=== PATIENT | female | born 1965 | race Caucasian/White ===

== ENCOUNTER 2019-06-22 13:31 | Emergency (ER) | payer MEDICARE, OTHER ==
[~2019-06-22] VITALS: Ht 165.1 cm; Wt 95.2 kg
[~2019-06-22 13:31] MED LIST: ALPR1 PO; ASPI81EC PO; ATENOLOL; BUSPIRONE; CHLO100 PO; CHOL10002 PO; CLONIDINE; EFFIENT; GEODON; JANUVIA; LEVSOD175 PO; LISI5 PO; METF500C PO; MORP15ER PO; OXYACE5T PO; RANI150 PO; RANO500T PO; SIMVASTATIN; VENLAFAXINE; ZAFI20 PO
== END 2019-06-22 15:31 | disposition home or self-care (01) ==
LOC: ER 13:31
DX: S70.02XA Contusion of left hip, initial encounter (principal); W18.2XXA Fall in (into) shower or empty bathtub, initial encounter; Z88.5 Allergy status to narcotic agent; Z91.048 Other nonmedicinal substance allergy status; Z79.899 Other long term (current) drug therapy; Z79.82 Long term (current) use of aspirin; Z79.84 Long term (current) use of oral hypoglycemic drugs; Z79.891 Long term (current) use of opiate analgesic; I25.2 Old myocardial infarction
CPT/HCPCS: 72100; 73502; 99283-25

== ENCOUNTER → 2019-07-21 | Outpatient (CLI) | payer MEDICARE, OTHER ==
[~2019-07-21] MED LIST changes: +ACET325 PO; +ALBU2.5V5 INH; +ALBU3IS INH; +ASPI81CH PO; +ATOR40TA PO; +Anti-Diarrheal2 MG PO; +BACL10 PO; +BISA10S PR; +CALC.25 PO; +COMBIVENT RESPIM4 GM INH; +DIVA500EC PO; +DULERA 200 MCG/13 GM INH; +FOLI1 PO; +FURO20 PO; +GABA100 PO; +HALO2 PO; +HALO5 PO; +Isosorbide Mono30 MG PO; +LACO50TA2 PO; +LEVSOD112 PO; +Lisinopril2.5 MG PO; +MIRT15 PO; +Milk Of Ma400 MG/5 M PO; +NITR.4SL SL; +NOVOLOG FL100 UNIT/1 SC; +NYSTRITC TOP; +POTA10T PO; +PRAZ1 PO; +PRED20 PO; +Percocet 5-3251 EACH PO; +ROBITUSSIN COU237 ML PO; +Refresh Plus1 EACH BOTHEYES; +TICA90TA PO; +TRIPLE ANTIBIOT28 GM TOP; +VENL150ER PO; +VENL75ER PO; +Vitamin D2000 UNIT PO
[2019-07-21 19:42] LABS: Source, Urine Clean Catch
[2019-07-21 20:16] LABS: Bilirubin, Urine Neg (Neg); Blood, Urine Neg (Neg); Glucose Qualitative, Urine Neg (Neg); Ketones, Urine Neg (Neg); Leukocyte Esterase, Urine 1+ (Neg); Nitrite, Urine Neg (Neg); Protein, Urine 2+ (Neg); Urobilinogen, Urine NORM (Normal)
[2019-07-21 20:23] LABS: Appearance, Urine Clear (Clear); Color, Urine Yellow (P-Yellow)
[2019-07-21 20:24] LABS: Bacteria Mod /hpf; Red Blood Cells, Urine 0-2 /hpf (0-2); Squamous Epithelial Cells Few /hpf (Few)
== END | disposition home or self-care (01) ==
LOC: LAB SHORT 11:35 → LAB 11:35
PROVIDERS: Nurse Practitioner Family
DX: N39.0 Urinary tract infection, site not specified (principal)
CPT/HCPCS: 81001; 87086

== ENCOUNTER → 2019-08-07 | Outpatient (CLI) | payer MEDICARE, OTHER ==
[2019-08-07 12:46] LABS: Bilirubin, Urine Neg (Neg); Blood, Urine Neg (Neg); Glucose Qualitative, Urine Neg (Neg); Ketones, Urine Neg (Neg); Leukocyte Esterase, Urine Neg (Neg); Nitrite, Urine Neg (Neg); Protein, Urine 2+ (Neg); Urobilinogen, Urine NORM (Normal)
[2019-08-07 13:06] LABS: Appearance, Urine Clear (Clear); Bacteria Not Seen /hpf; Color, Urine Yellow (P-Yellow); Red Blood Cells, Urine Not Seen /hpf (0-2); Squamous Epithelial Cells Not Seen /hpf (Few); White Blood Cells, Urine Not Seen /hpf (0-5); Yeast/Fungi Urine Not Seen /hpf
== END | disposition home or self-care (01) ==
LOC: LAB SHORT 12:35 → LAB 12:35
DX: F01.50 Vascular dementia, unspecified severity, without behavioral disturbance, psychotic disturbance, mood disturbance, and anxiety (principal)
CPT/HCPCS: 81001

== ENCOUNTER 2019-08-25 21:45 | Inpatient (IN) | payer MEDICARE, OTHER ==
[~2019-08-25] VITALS: Ht 157.5 cm; Wt 103.8 kg
[~2019-08-25 21:45] MED LIST changes: -ACET325 PO; -ALBU2.5V5 INH; -ALBU3IS INH; -ASPI81CH PO; -ATOR40TA PO; -Anti-Diarrheal2 MG PO; -BACL10 PO; -BISA10S PR; -CALC.25 PO; -COMBIVENT RESPIM4 GM INH; -DIVA500EC PO; -DULERA 200 MCG/13 GM INH; -FOLI1 PO; -FURO20 PO; -GABA100 PO; -HALO2 PO; -HALO5 PO; -Isosorbide Mono30 MG PO; -LACO50TA2 PO; -LEVSOD112 PO; -Lisinopril2.5 MG PO; -MIRT15 PO; -Milk Of Ma400 MG/5 M PO; -NITR.4SL SL; -NOVOLOG FL100 UNIT/1 SC; -NYSTRITC TOP; -POTA10T PO; -PRAZ1 PO; -PRED20 PO; -Percocet 5-3251 EACH PO; -ROBITUSSIN COU237 ML PO; -Refresh Plus1 EACH BOTHEYES; -TICA90TA PO; -TRIPLE ANTIBIOT28 GM TOP; -VENL150ER PO; -VENL75ER PO; -Vitamin D2000 UNIT PO
[2019-08-25] MEDS ORDERED: ATOR40TA PO (22:37)
[2019-08-25] MEDS ORDERED: ASPI81CH PO (22:37)
[2019-08-25] MEDS ORDERED: TICA90TA PO (22:38)
[2019-08-25] MEDS ORDERED: CALC.25 PO (22:39)
[2019-08-25] MEDS ORDERED: FOLI1 PO (22:40)
[2019-08-25] MEDS ORDERED: DIVA500EC PO (22:40)
[2019-08-25] MEDS ORDERED: FURO20 PO (22:40)
[2019-08-25] MEDS ORDERED: GABA100 PO (22:41)
[2019-08-25] MEDS ORDERED: Isosorbide Mono30 MG PO (22:42)
[2019-08-25] MEDS ORDERED: HALO5 PO (22:42)
[2019-08-25] MEDS ORDERED: Lisinopril2.5 MG PO (22:43)
[2019-08-25] MEDS ORDERED: LEVSOD112 PO (22:43)
[2019-08-25] MEDS ORDERED: MIRT15 PO (22:44)
[2019-08-25] MEDS ORDERED: NOVOLOG FL100 UNIT/1 SC (22:44)
[2019-08-25] MEDS ORDERED: POTA10T PO (22:44)
[2019-08-25] MEDS ORDERED: PRAZ1 PO (22:45)
[2019-08-25] MEDS ORDERED: RANO500T PO (22:45)
[2019-08-25] MEDS ORDERED: VENL75ER PO (22:46)
[2019-08-25] MEDS ORDERED: VENL150ER PO (22:46)
[2019-08-25] MEDS ORDERED: Vitamin D2000 UNIT PO (22:47)
[2019-08-25] MEDS ORDERED: LACO50TA2 PO (22:47)
[2019-08-25] MEDS ORDERED: ACET325 PO (22:47)
[2019-08-25] MEDS ORDERED: ALBU2.5V5 INH (22:48)
[2019-08-25] MEDS ORDERED: BACL10 PO (22:49)
[2019-08-25] MEDS ORDERED: BISA10S PR (22:50)
[2019-08-25] MEDS ORDERED: Anti-Diarrheal2 MG PO (22:57)
[2019-08-25] MEDS ORDERED: HALO2 PO (22:57)
[2019-08-25] MEDS ORDERED: NITR.4SL SL (22:58)
[2019-08-25] MEDS ORDERED: Milk Of Ma400 MG/5 M PO (22:58)
[2019-08-25] MEDS ORDERED: NYSTRITC TOP (23:01)
[2019-08-25] MEDS ORDERED: Percocet 5-3251 EACH PO (23:02)
[2019-08-25] MEDS ORDERED: TRIPLE ANTIBIOT28 GM TOP (23:03)
[2019-08-25 23:08] LABS: BASOPHILS ABSOLUTE AUTO 0.03 K/mm3 (0.00-0.23); BASOPHILS PERCENT AUTO 0 % (0-2); EOSINOPHILS ABSOLUTE AUTO 0.23 K/mm3 (0.00-0.68); EOSINOPHILS PERCENT AUTO 3 % (0-6); Hematocrit 41.3 % (33.0-51.0); Hemoglobin 12.9 g/dL (11.5-16.0); IMMATURE GRAN ABSOLUTE AUTO 0.04 K/mm3 (0.00-0.10); IMMATURE GRAN PERCENT AUTO 1 % (0-1); LYMPHOCYTES ABSOLUTE AUTO 2.11 K/mm3 (0.84-5.20); LYMPHOCYTES PERCENT AUTO 25 % (21-46); MONOCYTES ABSOLUTE AUTO 0.83 K/mm3 (0.16-1.47); MONOCYTES PERCENT AUTO 10 % (4-13); Mean Corpuscular HGB 33.4 pg (26.0-34.0); Mean Corpuscular HGB Conc 31.2 g/dL (31.5-36.5); Mean Corpuscular Volume 107 fL (80-100); Mean Platelet Volume 10.1 fL (9.1-12.4); NEUTROPHILS ABSOLUTE AUTO 5.19 K/mm3 (1.96-9.15); NEUTROPHILS PERCENT AUTO 62 % (41-73); Platelet Count 166 K/mm3 (150-400); RDW Coefficient Variation 13.2 % (11.7-14.2); RDW Standard Deviation 52.9 fL (35.1-46.3); Red Blood Cell Count 3.86 M/mm3 (3.80-5.20); White Blood Cell Count 8.43 K/mm3 (4.00-11.30)
[2019-08-25 23:29] LABS: Albumin, Blood 3.3 g/dL (3.4-5.0); Albumin/Globulin Ratio 0.9 (0.8-1.8); Bilirubin, Total 0.3 mg/dL (0.1-1.0); Bun/Creatinine Ratio 31.3 (12.0-20.0); Calcium, Blood 8.9 mg/dL (8.5-10.1); Creatinine, Blood 2.11 mg/dL (0.40-1.00); Globulin, Blood 3.8 g/dL (2.2-4.0); Potassium, Blood 4.9 mmol/L (3.5-5.5); Total Protein, Blood 7.1 g/dL (6.4-8.2)
[2019-08-26 00:31] LABS: Base Excess Venous -0.6 mmol/L; Bicarbonate Venous 23.3 mmol/L (24.0-30.0); PCO2 Venous 48.7 mmHg (38-42); PO2 Venous 55.6 mmHg (38-42); pH Blood Venous 7.33 (7.34-7.37)
[2019-08-26 09:34] LABS: Base Excess Venous -2.8 mmol/L; PCO2 Venous 42.4 mmHg (38-42); PO2 Venous 161 mmHg (38-42); pH Blood Venous 7.34 (7.34-7.37)
[2019-08-26 12:01] LABS: Hematocrit 37.3 % (33.0-51.0); Hemoglobin 11.6 g/dL (11.5-16.0); Mean Corpuscular HGB Conc 31.1 g/dL (31.5-36.5); Mean Corpuscular Volume 106 fL (80-100); Mean Platelet Volume 9.8 fL (9.1-12.4); Platelet Count 154 K/mm3 (150-400); RDW Coefficient Variation 13.3 % (11.7-14.2); RDW Standard Deviation 52.7 fL (35.1-46.3); Red Blood Cell Count 3.51 M/mm3 (3.80-5.20); White Blood Cell Count 5.97 K/mm3 (4.00-11.30)
[2019-08-26 12:21] LABS: Albumin, Blood 2.9 g/dL (3.4-5.0); Albumin/Globulin Ratio 0.8 (0.8-1.8); Bilirubin, Total 0.2 mg/dL (0.1-1.0); Bun/Creatinine Ratio 31.9 (12.0-20.0); Calcium, Blood 8.8 mg/dL (8.5-10.1); Creatinine, Blood 1.85 mg/dL (0.40-1.00); Globulin, Blood 3.6 g/dL (2.2-4.0); Potassium, Blood 4.9 mmol/L (3.5-5.5); Total Protein, Blood 6.5 g/dL (6.4-8.2)
--- NOTE | 2019-08-26 16:39 | NUR ---
ADMIT NOTE/SHIFT SUMMARY RECEIVED REPORT FORM GUEVARA AARON IN ED. PT TO ROOM VIA BED AT 1600. PT ORIENTED TO ROOM AND CALL LIGHT. PT EDUCATED ON FALL RISK, BEDALARM AND CALL LIGHT. PT PLACED ON BIPAP IN ED, 10/23 AT 40% FIO2. PT ALERT AND ORIENTED TO PERSON, STATES SHE DOSE NOT KNOW WHERE SHE IS, HOW SHE GOT HERE OR THE DATE. STATES SHE MIGHT BE AT THE HOSPITAL. PT ASKING TO SPEAK A [facility]. PT DENIES PAIN AND NAUSEA. PT SOB WITH EXERTION, ON BIPAP 10/23 AT 40%FIO2 WITH A BACK UP RATE OF 14 SPO2 90-96%, BREATHING LABORED, LS EXP WHEEZE AND COARSE T/O. PT ANXIOUS AND CONFUSED, ASKING US TO STOP ASKING HER QUESTIONS AND TO CALL [facility], CALL NUMBER WE HAVE ON FILE AND IT WAS A WRONG NUMBER. SINCE PT STATES SHE LIVES WITH DOMINICK CALLED THE NUMBER ON FILE. SPOKE WITH LYDIA AT [facility], PT LIVES IN [address]. 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 PT BASELINE IS A&Ox1, CONFUSED. LYDIA REPORTS PT IS 1PEUNICE HINES AT BASELINE. WILL CONTINUE TO MONITOR.
[2019-08-26 16:48] LABS: U Amphetamine Screen Not Detected; U Barbituate Screen Not Detected; U Benzodiazapine Screen Not Detected; U Buprenorphine Screen Not Detected; U Cannabinoids Screen Not Detected; U Cocaine Screen Not Detected; U Methadone Screen Not Detected; U Methamphetamine Screen Not Detected; U Opiates Screen Not Detected; U Oxycodone Screen Not Detected; U Phencyclidine Screen Not Detected; U Propoxyphene Screen Not Detected
[2019-08-26 18:05] LABS: Adenovirus Not Detected (NOT DETECT); Bordetella pertussis Not Detected (NOT DETECT); Chlamydophila pneumoniae Not Detected (NOT DETECT); Coronavirus 229E Not Detected (NOT DETECT); Coronavirus HKU1 Not Detected (NOT DETECT); Coronavirus NL63 Not Detected (NOT DETECT); Coronavirus OC43 Not Detected (NOT DETECT); Human Metapneumovirus Not Detected (NOT DETECT); Human Rhinovirus/Enterovirus Detected (NOT DETECT); Influenza A Not Detected (NOT DETECT); Influenza A/2009-H1 Not Detected (NOT DETECT); Influenza A/H1 Not Detected (NOT DETECT); Influenza A/H3 Not Detected (NOT DETECT); Influenza B Not Detected (NOT DETECT); Mycoplasma pneumoniae Not Detected (NOT DETECT); Parainfluenza Virus 1 Not Detected (NOT DETECT); Parainfluenza Virus 2 Not Detected (NOT DETECT); Parainfluenza Virus 3 Not Detected (NOT DETECT); Parainfluenza Virus 4 Not Detected (NOT DETECT); Respiratory Syncytial Virus Not Detected (NOT DETECT)
--- NOTE | 2019-08-27 06:22 | NUR ---
SHIFT SUMMARY PT SLEEPING IN ROOM COMFORTABLY AT THIS TIME. NO ACUTE CHANGES IN STATSU T/O NIGHT. PT REMAINED CONFUSED T/O NIGHT AND REQUIRED FREQUENT REORIENTING. PT WORE BIPAP T/O NIGHT AND SLEPT WELL ONCE BIPAP WAS ONE. PT GOT UP AND SET BED ALARM OFF ONCE DURING NIGHT TO USE RESTROOM. PT WAS AGGITATED AND CONFUSED AND REQUIRED SIGNIFICANT REORIENTATION. THIS RN WAS ABLE TO GET PT BACK TO BED AND CAKLMED DOWN ENOUGH TO GO BACK TO SLEEP. RESP EVEN UNLABORED ON BIPAP W/ SATS >92%. DENIED PAIN OR OTHER NEEDS. CALL LIGHT AND BED ALARM ON FOR SAFETY.
--- NOTE | 2019-08-27 07:52 | NUR ---
Ambulatory to the bathroom with standby assistance to void. Spo2 88% on return to bed after the activity, while wearing oxygen delivery 5 l/min on nasal cannula. NO observed dyspnea. Occasional dry cough noted. spo2 to 93% after feww minutes rest in the bed.
--- NOTE | 2019-08-27 09:16 | NUR ---
NURSING PCU DAYSHIFT: Assumed care of pt at approx 0700. Sleeping though arouses to verbal stimuli, oriented to self only, cooperative w/care though impulsive. Denies any pain/discomfort at rest. Skin is fragile, scattered scabs on ext's, no breakdown noted. General weakness, ambulates and transfers w/one staff assist. Tele in place, NSR w/BBB, no c/o CP/pressure, BP stable, no noted edema. L/S with I/E wheezes t/o, c/o dyspnea w/exertion, O2 sat low 90's on 2L NC, desaturation noted w/sleep, continuous bedside O2 monitoring. Abd obese, SNT, BT+, voiding w/o difficulty per pt. PIV x1, s/l. No s/s of acute distress at this time. Call light in reach though bed alarm is set for safety purposes. Pt denies any current needs or questions regarding plan of care. Awaiting rounding from PMD, cont to monitor for any changes.
--- NOTE | 2019-08-27 17:32 | NUR ---
NURSING PCU DAYSHIFT SUMMARY: No significant changes noted t/o the shift. Pt remains pleasantly forgetful though cooperative w/care. Tolerated bipap for short period of time though wore NC at 4.5L t/o majority of shift w/O2 sat low 90's. Seen by PMD, changed to medical status w/o tele, awaiting bed assignment. No s/s of acute distress at this time, call light in reach, bed alarm set for safety purposes. Cont to monitor until rpt is given to NOC RN.
--- NOTE | 2019-08-28 06:00 | NUR ---
SHIFT SUMMARY PT SLEEPING IN ROOM COMFORTABLY AT THIS TIME. NO ACUTE CHANGES IN STATUS T/O NIGHT. PT SLEPT WELL T/O NIGHT. WORE CPAP T/O NIGHT. RESP EVEN UNLABORED ON CPAP W/ SATS >95%. PT DENIES ANY PAIN DURING NIGHT, DENIED CP OR SOB. PT REMAINED CONFUSED AND REQUIRED REORIENTING MULTIPLE TIMES DURING START OF SHIFT UNTIL PT FELL ASLEEP. BED ALARM ON FOR SAFETY. CALL LIGHT IN REACH.
--- NOTE | 2019-08-28 10:00 | NUR ---
PT PLEASANT COOP CONFUSED ALERT TO SELF, FAM. NOT SURE OF PLACE, DATE, CURRENT DATE. NOT SURE WHY HERE. SOME ANX. WITHDRAWN. CONFUSED. H/R REG, NO MURMER NOTED. NO TELE. LUNGS CLEAR UPPER DIM BASES. ON 4.5L O2. BIPAP AT NITE. RESP EASY, UNLABORED. BT X4 LAST BM NOT KNOWN BY PT. STATES MAYBE 2 DAY. VOIDS 1 ASSST TO BATHROOM. UNSTEADY. BED IN LOW POSITION,C ALL LITE IN REACH, BED ALARM ON FOR SAFETY,.
--- NOTE | 2019-08-28 13:15 | NUR ---
TALKED TO RT WILL BRING MSERIES CPAP TO ROOM 358. NEED CONT BIOX. REPOTT CALLED TO JANET. WATERMAN. PT TRANPORTED AT 1313
--- NOTE | 2019-08-28 16:10 | NUR ---
TRANSFER FROM 358 TO ROOM VIA W/C ACCOMPANIED BY GUEVARA BROWNE AND FRIEND. ORIENTED TO ROOM AND CALL LIGHT IN HAND. BED LOW AND IN LOCKED POSITION. BED ALARM APPLIED. FREQUENT ROUNDING EXPLAINED TO FRIEND AND PATIENT.
--- NOTE | 2019-08-28 16:38 | NUR ---
1330 ASSUMED CARE OF PT. PCU TX TO RM 358. RECEIVED REPORT FROM DARNELL WATERMAN. PT ADMITTED FOR COPD EXAC. HX OF VASCULAR DEMENTIA, DM, CAD, CKD, AND BIPOLAR. PT FROM [facility]. POSSIBLE PLACEMENT IF UNABLE TO RETURN TO [facility]. PT NOW ON O2 AT THIS TIME, BUT ALSO A SMOKER. PT UNABLE TO RETURN ON O2 IF SHE CONTINUES TO SMOKE. PER REPORT, PT WEARS AN EYE PATCH TO R EYE R/T DOUBLE VISION. PT FORGETFUL, NEEDING FREQUENT REMINDERS. CBG'S AC/HS. PG TO SHARA; SL. WEARS A BIPAP AT NIGHT. RT HERE TO TO SET UP WHEN TX'D. BED ALARM PLACED ON PT WITH CALL LT INSTRUCTIONS. PT OOB, SETTING CALL BED ALARM OFF A COUPLE OF TIMES. PT FORGETFUL, AND WOULD NOT REMEMBER TO USE CALL LT. PT TX'D TO [facility] FOR SAFETY. PT SEEMED VERY PLEASANT, BUT VERY FORGETFUL, EVEN WITH REPEATED FREQUENT REMINDERS. REPORT GIVEN TO AD WATERMAN.
--- NOTE | 2019-08-28 16:54 | NUR ---
PT WALKED THROUGH DOORS IN SCU STATES "I NEED TO GET OUT OF HERE" "YOU WON'T LET ME GO"; FRIEND IN ROOM STATES "SHE IS JUST GETTING AGITATED AGAIN" REPORTED TO DR. VILLANUEVA.
--- NOTE | 2019-08-28 17:03 | NUR ---
SHIFT SUMMARY TRANSFER FROM [facility] THIS EVENING. BIPOLAR. SBA. ATTEMPTED TO LEAVE UNIT STATES "I'M JUST LEAVING, DON'T TOUCH ME!" REDIRECTED AND DEESCALATED. DR. VILLANUEVA INFORMED. LONG TIME FRIEND IN ROOM AND ATTENTIVE. DENIES PAIN. 4.5L 02 PER NC. FORGETFUL. BIPAP W/SLEEP. CBG'S AC HS. COPD, CAD, CKD, UTERINE PROLAPSE. VASCULAR DEMENTIA.
--- NOTE | 2019-08-29 03:52 | NUR ---
SHIFT SUMMARY PT HAD NO COMPLAINTS NOTED. PT HAD NO SOB NOTED. PT WAS UP LATE TALKING ON PHONE AND WATCHING TV. PT IS IMPULSIVE AND AT TIMES UNSTEADY ON HER FEET. BED ALARM IS ON. PT IS FORGETFUL BUT REIDIRECTABLE. PT FOLLOWS DIRECTIONS BUT FORGETS DIRECTION SOON AFTER. PT IS PLEASENT AND AGREEABLE JUST FORGETS OWN LIMITATIONS. PT IS CURRENTLY SLEEPING AND BREATHING EASY. CALL LIGHT IN REACH AND BED ALARM ON.
--- NOTE | 2019-08-29 04:18 | NUR ---
PT WOKE UP RECENTLY VERY CONFUSED AND ATTEMPTING TO GET OUT OF BED. PT WANTED TO GO OUTSIDE TO SMOKE. PT DID NOT KNOW SHE WAS AT HOSPITAL. PT IS AGITATED. PT CBG WAS ASSESSED AND IT WAS 259 MG/DL. PT REDIRECTED TO BED AFTER USING RESTROOM.
--- NOTE | 2019-08-29 10:23 | NUR ---
Physician Notified Called [facility] and spoke to Nneka, states pt is not on O2 at home so her baseline would be no O2. Notified Dr. Jean, discharge is pending home O2 eval.
[2019-08-29] MEDS ORDERED: ALBU3IS INH (11:39)
[2019-08-29] MEDS ORDERED: ROBITUSSIN COU237 ML PO (11:46)
--- NOTE | 2019-08-29 16:54 | NUR ---
Shift Summary A/O to self. 1PSBA in room. Home O2 Evaluation completed, pt to wear 2L O2 @ rest (see RT notes for further details). Pt was supposed to d/c back to [facility] today; however, facility called back after this RN called to give report and stated they cannot take pt back d/t no presence of RN at their facility to receive and assess pt on the weekends. Plan is to discharge on Saturday (08/31/2019). Dr. Jean aware. Discharge paperwork already completed, meds faxed to [facility], paperwork to establish home O2 faxed to [facility] (delivery is currently on hold until pt discharges). Pt became agitated after being told she couldn't go home yet. Pt states "I need money so I can get some cigarettes. I need to smoke." Educated pt on the need to stay in hospital and her O2 requirements. Medicated for agitation x 1 per EMAR. Patient more calm now and resting in bed. Bandage on R knee changed. L/S: inspiratory wheezes. No other acute changes this shift.
--- NOTE | 2019-08-30 03:43 | NUR ---
54 year old Female with copd and positive for RHINO/ entero virus on admission and has been compliant with cpap or oxygen. PT cooperative with medications, no complaints of acute pain. PT from [facility] and she has DC order but unable to return to facility until Saturday. PT wears eyepatch rt eye while awake. On IV steroid for COPD. Home o2 tanmay says PT needs oxygen at rest 2 l nc. Incontinet of urine several times wears pullups. Hx of falls with several scabber abraisions rt knee. ON haldol 5 mg with no prn use needed this shift. High risk for falls sets bed alarm off several times. Reoriented several times encouraged smoking cessation.
--- NOTE | 2019-08-30 16:55 | NUR ---
Shift Summary A/O to self and family. Continues to not know where she is or lives. Forgetful. Pt has been up in room c Fww independently. Ambulated in hallway c SBA and Fww, tolerated well. Monitors are on for pt safety. Pleasant and cooperative, have not had to medicate for agitation. 2LPM O2 @ rest. No other acute changes.
--- NOTE | 2019-08-31 03:54 | NUR ---
SUMMARY: PT A/O TO SELF AND FAMILY BUT IS FORGETFULL TO PLACE, DATE/TIME AND EVENT. CAMERA MONITORING FOR FALL RISK AND IMPULSIVITY. SHE'S STABLE ON HER FEET W/FWW BUT HAS HX OF FALLS AND ISN'T ALWAYS SPACIALLY AWARE OF LINES OR OBSTACLES IN ROOM. VOLUNTEER FIREFIGHTER AMBULATED PT IN HALLS. SHE'S PLEASANT/COOPERATIVE AND CONTINENT TO TOILET FOR VOIDS. MEPILEX TO KNEE REMAINS C/D/I AND SCATTERED BRUISES OBSERVED. PT TOLERATED CPAP W/2L O2 BLEED IN AND CONT BIOX INTACT. SHARA POWERGLIDE REMAINS SL. NO ACUTE CHANGE, VSS/AFEBRILE AND PT DENIED COMPLAINTS. SNACKS WERE PROVIDED PRN PER REQUEST. PT WILL LIKELY D/C BACK TO [facility] TODAY W/ORDERS ON CHART. WCTM AND REPORT TO DAY RN.
[2019-08-31] MEDS ORDERED: PRED20 PO (12:45)
--- NOTE | 2019-08-31 13:35 | NUR ---
PT DISCHARGED THE PT VERBALIZED UNDERSTANDING OF THE DC INSTRUCTIONS, THE PTS INSTRUCTIONDS WERE SENT TO [facility], THE PT APPEARED TO BE BREATHING EASILY ON RA, AN APPOINTMENT WAS MADE WITH [facility] ORDERED FOR THE PT, THE PT WAS TRANSFERED VIA WHEELCHAIR BY [facility]
== END 2019-08-31 13:26 | disposition home or self-care (01) | DRG 189 ==
LOC: ER 21:45 → ERHOLD 08-26 00:08 → PCU 08-26 00:08 → MEDS 08-28 13:18 → ENPENDDIS 08-29 11:11 → MEDS 08-31 13:26
PROVIDERS: Emergency Medicine; Internal Medicine; ADMIT Internal Medicine
DX: J96.21 Acute and chronic respiratory failure with hypoxia (principal); G93.41 Metabolic encephalopathy; J44.1 Chronic obstructive pulmonary disease with (acute) exacerbation; J44.0 Chronic obstructive pulmonary disease with (acute) lower respiratory infection; N18.4 Chronic kidney disease, stage 4 (severe); J96.22 Acute and chronic respiratory failure with hypercapnia; J20.6 Acute bronchitis due to rhinovirus; E03.9 Hypothyroidism, unspecified; E66.01 Morbid (severe) obesity due to excess calories; G47.33 Obstructive sleep apnea (adult) (pediatric); G40.909 Epilepsy, unspecified, not intractable, without status epilepticus; F31.9 Bipolar disorder, unspecified; I25.118 Atherosclerotic heart disease of native coronary artery with other forms of angina pectoris; E11.22 Type 2 diabetes mellitus with diabetic chronic kidney disease; K21.9 Gastro-esophageal reflux disease without esophagitis; F17.210 Nicotine dependence, cigarettes, uncomplicated; Z95.5 Presence of coronary angioplasty implant and graft; I25.2 Old myocardial infarction; Z99.89 Dependence on other enabling machines and devices; Z88.5 Allergy status to narcotic agent; Z88.8 Allergy status to other drugs, medicaments and biological substances; Z79.84 Long term (current) use of oral hypoglycemic drugs; Z79.82 Long term (current) use of aspirin; Z79.899 Other long term (current) drug therapy; Z68.37 Body mass index [BMI] 37.0-37.9, adult
CPT/HCPCS: 0099U; 36415; 71046; 80053; 82803; 82947; 83880; 85025; 85027; 93005; 93010; 94640; 94644; 94660; 94761; 94762; 96365; 96372; 96375; 96376; 99285-25; C1751; J1650; J1956; J2310; J2920; J2930; J7512

== ENCOUNTER 2019-09-06 03:54 | Emergency (ER) | payer OTHER ==
[~2019-09-06] VITALS: Ht 162.6 cm; Wt 93.0 kg
[~2019-09-06 03:54] MED LIST changes: +ACET325 PO; +ALBU2.5V5 INH; +ALBU3IS INH; +ASPI81CH PO; +ATOR40TA PO; +Anti-Diarrheal2 MG PO; +BACL10 PO; +BISA10S PR; +CALC.25 PO; +DIVA500EC PO; +FOLI1 PO; +FURO20 PO; +GABA100 PO; +HALO2 PO; +HALO5 PO; +Isosorbide Mono30 MG PO; +LACO50TA2 PO; +LEVSOD112 PO; +Lisinopril2.5 MG PO; +MIRT15 PO; +Milk Of Ma400 MG/5 M PO; +NITR.4SL SL; +NOVOLOG FL100 UNIT/1 SC; +NYSTRITC TOP; +POTA10T PO; +PRAZ1 PO; +PRED20 PO; +Percocet 5-3251 EACH PO; +ROBITUSSIN COU237 ML PO; +TICA90TA PO; +TRIPLE ANTIBIOT28 GM TOP; +VENL150ER PO; +VENL75ER PO; +Vitamin D2000 UNIT PO
[2019-09-06 04:50] LABS: BASOPHILS ABSOLUTE AUTO 0.02 K/mm3 (0.00-0.23); BASOPHILS PERCENT AUTO 0 % (0-2); EOSINOPHILS PERCENT AUTO 1 % (0-6); Hematocrit 37.1 % (33.0-51.0); IMMATURE GRAN ABSOLUTE AUTO 0.15 K/mm3 (0.00-0.10); IMMATURE GRAN PERCENT AUTO 1 % (0-1); LYMPHOCYTES ABSOLUTE AUTO 2.15 K/mm3 (0.84-5.20); LYMPHOCYTES PERCENT AUTO 21 % (21-46); MONOCYTES ABSOLUTE AUTO 1.11 K/mm3 (0.16-1.47); MONOCYTES PERCENT AUTO 11 % (4-13); Mean Corpuscular HGB 33.9 pg (26.0-34.0); Mean Corpuscular HGB Conc 32.3 g/dL (31.5-36.5); Mean Corpuscular Volume 105 fL (80-100); NEUTROPHILS ABSOLUTE AUTO 6.94 K/mm3 (1.96-9.15); NEUTROPHILS PERCENT AUTO 66 % (41-73); Platelet Count 153 K/mm3 (150-400); RDW Coefficient Variation 12.9 % (11.7-14.2); RDW Standard Deviation 50.2 fL (35.1-46.3); Red Blood Cell Count 3.54 M/mm3 (3.80-5.20); White Blood Cell Count 10.47 K/mm3 (4.00-11.30)
[2019-09-06 05:04] LABS: Albumin, Blood 2.8 g/dL (3.4-5.0); Albumin/Globulin Ratio 0.8 (0.8-1.8); Bilirubin, Total 0.2 mg/dL (0.1-1.0); Bun/Creatinine Ratio 25.9 (12.0-20.0); Creatinine, Blood 2.16 mg/dL (0.40-1.00); Globulin, Blood 3.4 g/dL (2.2-4.0); Potassium, Blood 3.9 mmol/L (3.5-5.5); Total Protein, Blood 6.2 g/dL (6.4-8.2)
[2019-09-06] MEDS ORDERED: DULERA 200 MCG/13 GM INH (05:14)
[2019-09-06] MEDS ORDERED: COMBIVENT RESPIM4 GM INH (05:16)
[2019-09-06] MEDS ORDERED: BACL10 PO (05:24)
[2019-09-06 05:27] LABS: Source, Urine Catheter
[2019-09-06] MEDS ORDERED: Refresh Plus1 EACH BOTHEYES (05:27)
[2019-09-06 05:31] LABS: Bilirubin, Urine Neg (Neg); Blood, Urine 2+ (Neg); Glucose Qualitative, Urine 4+ (Neg); Ketones, Urine Neg (Neg); Leukocyte Esterase, Urine 1+ (Neg); Nitrite, Urine Neg (Neg); Protein, Urine 3+ (Neg); Urobilinogen, Urine NORM (Normal)
[2019-09-06 05:38] LABS: Appearance, Urine Hazy (Clear); Color, Urine Yellow (P-Yellow)
[2019-09-06 05:43] LABS: Bacteria Mod /hpf; Squamous Epithelial Cells Few /hpf (Few)
[2019-09-06 05:48] LABS: U Amphetamine Screen Not Detected; U Barbituate Screen Not Detected; U Benzodiazapine Screen Not Detected; U Buprenorphine Screen Not Detected; U Cannabinoids Screen DETECTED; U Cocaine Screen Not Detected; U Methadone Screen Not Detected; U Methamphetamine Screen Not Detected; U Opiates Screen Not Detected; U Oxycodone Screen Not Detected; U Phencyclidine Screen Not Detected; U Propoxyphene Screen Not Detected
[2019-09-06 06:38] LABS: Magnesium, Blood 1.5 mg/dL (1.6-2.4); Troponin I 0.042 ng/mL (0.000-0.040)
[2019-09-06 06:41] LABS: Base Excess Venous 0.7 mmol/L; Bicarbonate Venous 24.7 mmol/L (24.0-30.0); PCO2 Venous 46.4 mmHg (38-42); PO2 Venous 101 mmHg (38-42); pH Blood Venous 7.36 (7.34-7.37)
[2019-09-06 06:45] LABS: Beta-hydroxybutyrate 1.1 mg/dL (0.2-2.8)
[2019-09-06 08:08] LABS: Glucose, Blood 395 mg/dL (70-99)
== END 2019-09-06 08:41 | disposition left against medical advice (07) ==
LOC: ER 03:54
PROVIDERS: Emergency Medicine
DX: J44.1 Chronic obstructive pulmonary disease with (acute) exacerbation (principal); R79.89 Other specified abnormal findings of blood chemistry; E11.22 Type 2 diabetes mellitus with diabetic chronic kidney disease; N18.9 Chronic kidney disease, unspecified; E11.65 Type 2 diabetes mellitus with hyperglycemia; Z88.5 Allergy status to narcotic agent; Z88.8 Allergy status to other drugs, medicaments and biological substances; Z91.048 Other nonmedicinal substance allergy status; Z79.899 Other long term (current) drug therapy; Z79.4 Long term (current) use of insulin; Z79.52 Long term (current) use of systemic steroids; I25.10 Atherosclerotic heart disease of native coronary artery without angina pectoris; G47.30 Sleep apnea, unspecified; I25.2 Old myocardial infarction; E66.9 Obesity, unspecified; F31.9 Bipolar disorder, unspecified; F17.200 Nicotine dependence, unspecified, uncomplicated
CPT/HCPCS: 71046; 80053; 81001; 82010; 82803; 82947; 83690; 83735; 83880; 84484; 85025; 87086; 93005; 93010; 94640; 96360; 99285-25; J1815; J7030

== ENCOUNTER 2019-09-10 22:45 | Emergency (ER) | payer MEDICARE, OTHER ==
[~2019-09-10] VITALS: Ht 162.6 cm; Wt 88.5 kg
[~2019-09-10 22:45] MED LIST changes: +COMBIVENT RESPIM4 GM INH; +DULERA 200 MCG/13 GM INH; +Refresh Plus1 EACH BOTHEYES
[2019-09-11 00:25] LABS: BASOPHILS ABSOLUTE AUTO 0.02 K/mm3 (0.00-0.23); BASOPHILS PERCENT AUTO 0 % (0-2); EOSINOPHILS PERCENT AUTO 1 % (0-6); Hemoglobin 12.7 g/dL (11.5-16.0); IMMATURE GRAN ABSOLUTE AUTO 0.12 K/mm3 (0.00-0.10); IMMATURE GRAN PERCENT AUTO 1 % (0-1); LYMPHOCYTES ABSOLUTE AUTO 2.08 K/mm3 (0.84-5.20); LYMPHOCYTES PERCENT AUTO 21 % (21-46); MONOCYTES ABSOLUTE AUTO 0.95 K/mm3 (0.16-1.47); MONOCYTES PERCENT AUTO 10 % (4-13); Mean Corpuscular HGB Conc 32.6 g/dL (31.5-36.5); Mean Corpuscular Volume 105 fL (80-100); Mean Platelet Volume 10.1 fL (9.1-12.4); NEUTROPHILS ABSOLUTE AUTO 6.58 K/mm3 (1.96-9.15); NEUTROPHILS PERCENT AUTO 67 % (41-73); Platelet Count 188 K/mm3 (150-400); RDW Standard Deviation 49.6 fL (35.1-46.3); Red Blood Cell Count 3.73 M/mm3 (3.80-5.20); White Blood Cell Count 9.85 K/mm3 (4.00-11.30)
[2019-09-11 00:44] LABS: Alanine Aminotransfer (ALT/SGP 17 U/L (12-78); Albumin, Blood 3.2 g/dL (3.4-5.0); Albumin/Globulin Ratio 0.8 (0.8-1.8); Alk Phos 97 U/L (50-136); Anion Gap 7 mmol/L (6-16); Aspartate Aminotrans (AST/SGOT 19 U/L (12-37); Bilirubin, Total 0.3 mg/dL (0.1-1.0); Blood Urea Nitrogen 43 mg/dL (8-24); Bun/Creatinine Ratio 20.4 (12.0-20.0); CO2, Blood 29 mmol/L (21-32); Calcium, Blood 8.5 mg/dL (8.5-10.1); Chloride, Blood 100 mmol/L (98-108); Creatinine, Blood 2.11 mg/dL (0.40-1.00); Ethanol (Alcohol), Blood, Med <3 mg/dL; Globulin, Blood 3.9 g/dL (2.2-4.0); Glomerular Filtration Rate 26 (60-); Glucose, Blood 138 mg/dL (70-99); Potassium, Blood 3.6 mmol/L (3.5-5.5); Sodium, Blood 136 mmol/L (136-145); Total Protein, Blood 7.1 g/dL (6.4-8.2)
== END 2019-09-11 02:30 | disposition home or self-care (01) ==
LOC: ER 22:45
PROVIDERS: Emergency Medicine
DX: T51.91XA Toxic effect of unspecified alcohol, accidental (unintentional), initial encounter (principal); T40.7X1A Poisoning by cannabis (derivatives), accidental (unintentional), initial encounter; J44.9 Chronic obstructive pulmonary disease, unspecified; F17.210 Nicotine dependence, cigarettes, uncomplicated; I12.9 Hypertensive chronic kidney disease with stage 1 through stage 4 chronic kidney disease, or unspecified chronic kidney disease; E11.22 Type 2 diabetes mellitus with diabetic chronic kidney disease; N18.9 Chronic kidney disease, unspecified; I50.9 Heart failure, unspecified; I25.2 Old myocardial infarction; E03.9 Hypothyroidism, unspecified; E78.5 Hyperlipidemia, unspecified; K21.9 Gastro-esophageal reflux disease without esophagitis; F32.9 Major depressive disorder, single episode, unspecified; F43.10 Post-traumatic stress disorder, unspecified; G47.00 Insomnia, unspecified; Z88.5 Allergy status to narcotic agent; Z88.8 Allergy status to other drugs, medicaments and biological substances; Z91.048 Other nonmedicinal substance allergy status; Z79.899 Other long term (current) drug therapy; Z79.4 Long term (current) use of insulin; Z79.82 Long term (current) use of aspirin; Z79.02 Long term (current) use of antithrombotics/antiplatelets
CPT/HCPCS: 36415; 80053; 82947; 85025; 93005; 93010; 99285-25; G0480

== ENCOUNTER → 2019-09-21 | Outpatient (CLI) | payer MEDICARE, OTHER ==
[2019-09-21 16:58] LABS: Protein, Urine Random 177.1 mg/dL (0.0-11.9)
== END | disposition home or self-care (01) ==
LOC: LAB 15:53 → LAB SHORT 15:53
PROVIDERS: Internal Medicine
DX: N18.4 Chronic kidney disease, stage 4 (severe) (principal)
CPT/HCPCS: 82570; 84156

== ENCOUNTER 2019-12-17 15:06 | Inpatient (IN) | payer MEDICARE, OTHER ==
[~2019-12-17] VITALS: Ht 162.6 cm; Wt 100.5 kg
[2019-12-17 16:01] LABS: Alanine Aminotransfer (ALT/SGP 13 U/L (12-78); Albumin, Blood 2.6 g/dL (3.4-5.0); Albumin/Globulin Ratio 0.9 (0.8-1.8); Alk Phos 71 U/L (50-136); Anion Gap 6 mmol/L (6-16); Aspartate Aminotrans (AST/SGOT 7 U/L (12-37); Bilirubin, Total 0.2 mg/dL (0.1-1.0); Blood Urea Nitrogen 44 mg/dL (8-24); Bun/Creatinine Ratio 25.1 (12.0-20.0); CO2, Blood 24 mmol/L (21-32); Calcium, Blood 8.2 mg/dL (8.5-10.1); Chloride, Blood 113 mmol/L (98-108); Creatinine, Blood 1.75 mg/dL (0.40-1.00); Glomerular Filtration Rate 32 (60-); Glucose, Blood 72 mg/dL (70-99); Potassium, Blood 4.3 mmol/L (3.5-5.5); Sodium, Blood 143 mmol/L (136-145); Total Protein, Blood 5.6 g/dL (6.4-8.2); Troponin I <0.015 ng/mL (0.000-0.040)
[2019-12-17 17:41] LABS: Source, Urine Clean Catch
[2019-12-17 17:48] LABS: Bilirubin, Urine Neg (Neg); Blood, Urine Neg (Neg); Glucose Qualitative, Urine Neg (Neg); Ketones, Urine Neg (Neg); Leukocyte Esterase, Urine Neg (Neg); Nitrite, Urine Neg (Neg); Protein, Urine 3+ (Neg); Specific Gravity, Urine 1.015 (1.003-1.022); Urobilinogen, Urine NORM (Normal)
[2019-12-17 17:55] LABS: Appearance, Urine Clear (Clear); Color, Urine Yellow (P-Yellow)
[2019-12-17 17:56] LABS: Bacteria Few /hpf; Red Blood Cells, Urine Not Seen /hpf (0-2); Squamous Epithelial Cells Few /hpf (Few); White Blood Cells, Urine 0-2 /hpf (0-5)
[2019-12-17 20:11] LABS: BASOPHILS ABSOLUTE AUTO 0.03 K/mm3 (0.00-0.23); BASOPHILS PERCENT AUTO 0 % (0-2); EOSINOPHILS ABSOLUTE AUTO 0.01 K/mm3 (0.00-0.68); EOSINOPHILS PERCENT AUTO 0 % (0-6); Hemoglobin 12.2 g/dL (11.5-16.0); IMMATURE GRAN ABSOLUTE AUTO 0.18 K/mm3 (0.00-0.10); IMMATURE GRAN PERCENT AUTO 2 % (0-1); LYMPHOCYTES ABSOLUTE AUTO 1.07 K/mm3 (0.84-5.20); LYMPHOCYTES PERCENT AUTO 13 % (21-46); MONOCYTES ABSOLUTE AUTO 0.15 K/mm3 (0.16-1.47); MONOCYTES PERCENT AUTO 2 % (4-13); Mean Corpuscular HGB 33.2 pg (26.0-34.0); Mean Corpuscular HGB Conc 32.1 g/dL (31.5-36.5); Mean Corpuscular Volume 103 fL (80-100); Mean Platelet Volume 10.4 fL (9.1-12.4); NEUTROPHILS ABSOLUTE AUTO 6.88 K/mm3 (1.96-9.15); NEUTROPHILS PERCENT AUTO 83 % (41-73); Platelet Count 153 K/mm3 (150-400); RDW Standard Deviation 53.1 fL (35.1-46.3); Red Blood Cell Count 3.68 M/mm3 (3.80-5.20); White Blood Cell Count 8.32 K/mm3 (4.00-11.30)
[2019-12-18] MEDS ORDERED: AMLO5 PO (00:27)
[2019-12-18] MEDS ORDERED: LOSA25 PO (00:38)
[2019-12-18] MEDS ORDERED: MELATONIN5 M1 PO (00:39)
[2019-12-18] MEDS ORDERED: TOUJEO SOL300 UNIT/1 SC (00:47)
[2019-12-18] MEDS ORDERED: HALO2 PO (00:59)
[2019-12-18] MEDS ORDERED: Pedi-Dri 100,0060 GM (01:02)
--- NOTE | 2019-12-18 01:55 | NUR ---
7042 REPORT RECIEVED FROM ER NURSE CARLA . 0005 PT RECIEVED TO UNIT VIA STRETCHER. PT FELT NERVOUS WHEN SHE GOT UP TO FLOOR. STAFF REASSURED WE ARE HERE TO TAKE CARE OF HER. PT REQUESTED TO HAVE BANDAID APPLIED ON HER R EYE TO COVER IT. IF NOT COVERED, DOUBLE VISION OCCURS. R EYE HAS AN UPWARD GAZE. PT SOB ON EXERTION. RT CAME AND SAW PT AND RECIEVED BREATHING TREATMENT. PT ON CONT PULSE OX. CURRENTLY ON 3L O2 SATTING IN HIGH 90'S. PT FALLS ALSEEP EASILY DURING QUESTIONS, BUT EASILY WOKEN UP. PT DENIES PAIN. WILL CONTINUE TO MONITOR.
--- NOTE | 2019-12-18 04:45 | NUR ---
STEEL PAN FORM PLACING SUPERVISOR SUMMARY PT SLEPT WELL TONIGHT. PT WORE CPAP ALL NIGHT ON AUTO TITRATE WITH 3 L BLED IN. PT ON CONT PULSE OX SATTING IN LOW TO MID 90'S. NO COMPAINTS OF PAIN. UP WITH 1 ASSIST TO BEDSIDE COMMODE. PHARMACY CALLED ME AND SAID OUR PHARMACY DOES NOT CARRY TOUJEO INSULIN THAT IS ON PT'S MEDICATION LIST. SINCE PT IS FROM A [facility] AND NO ONE CAN BRING IT TO HER. I CALLEED PHARMACY AGAIN AND THEY ARE GOING TO SUBSTITUE TOUJEO INSUIN WITH LANTUS 2X/DAY 5 U IN AM AND 5 U IN EVENING.
[2019-12-18 05:35] LABS: BASOPHILS ABSOLUTE AUTO 0.02 K/mm3 (0.00-0.23); BASOPHILS PERCENT AUTO 0 % (0-2); EOSINOPHILS PERCENT AUTO 0 % (0-6); Hematocrit 36.9 % (33.0-51.0); IMMATURE GRAN ABSOLUTE AUTO 0.11 K/mm3 (0.00-0.10); IMMATURE GRAN PERCENT AUTO 2 % (0-1); LYMPHOCYTES ABSOLUTE AUTO 0.88 K/mm3 (0.84-5.20); LYMPHOCYTES PERCENT AUTO 13 % (21-46); MONOCYTES ABSOLUTE AUTO 0.13 K/mm3 (0.16-1.47); MONOCYTES PERCENT AUTO 2 % (4-13); Mean Corpuscular HGB 33.3 pg (26.0-34.0); Mean Corpuscular HGB Conc 32.5 g/dL (31.5-36.5); Mean Corpuscular Volume 103 fL (80-100); Mean Platelet Volume 10.7 fL (9.1-12.4); NEUTROPHILS ABSOLUTE AUTO 5.88 K/mm3 (1.96-9.15); NEUTROPHILS PERCENT AUTO 84 % (41-73); Platelet Count 163 K/mm3 (150-400); RDW Coefficient Variation 13.8 % (11.7-14.2); RDW Standard Deviation 52.8 fL (35.1-46.3); White Blood Cell Count 7.02 K/mm3 (4.00-11.30)
[2019-12-18 06:03] LABS: Bun/Creatinine Ratio 26.7 (12.0-20.0); Calcium, Blood 8.3 mg/dL (8.5-10.1); Creatinine, Blood 1.72 mg/dL (0.40-1.00); Potassium, Blood 4.7 mmol/L (3.5-5.5)
--- NOTE | 2019-12-18 16:48 | NUR ---
Echocardiogram completed.
[2019-12-18 18:14] LABS: Base Excess Venous 3.2 mmol/L; Bicarbonate Venous 27.1 mmol/L (24.0-30.0)
[2019-12-18 18:15] LABS: PCO2 Venous 39.9 mmHg (38-42); pH Blood Venous 7.44 (7.34-7.37)
--- NOTE | 2019-12-18 19:14 | NUR ---
SHIFT SUMMARY. A&OX3, PLEASANT, PT DENIES SOB, N/V, AND PAIN. LUNGS CLEAR. PT USES BIPAP WHILE SLEEPING, ON RA WHILE AWAKE. NO NEW CHANGES OR CONCERNS.
--- NOTE | 2019-12-19 04:39 | NUR ---
SHIFT SUMMARY: VSS. AFEB. SOME CONFUSION AND FORGETFULNESS. POOR AWARENESS. DOES NOT USE CALL BUTTON APPROPRIATELY, WILL TALK OUT LOUD STATING SHE NEEDS ASSIST, OR WILL JUST STAND UP AND ATTEMPT SELF T/F- SETTING BED ALARM OFF. 02 91-94% WITH 3L 02 BLEED IN TO BIPAP. EXPIRATORY WHEEZING AUSCULTATED IN B BASES. SOB WITH EXERTION. OCC, INFREQUENT DRY HACKING COUGH. DENIES PAIN. HAS SLEPT THROUGH MUCH OF THE NIGHT. BED LOW, BED ALARM ON. CALL BUTTON IN REACH. NO ACUTE CHANGES TONIGHT. WILL CONT TO MONITOR.
[2019-12-19 06:01] LABS: BASOPHILS ABSOLUTE AUTO 0.01 K/mm3 (0.00-0.23); BASOPHILS PERCENT AUTO 0 % (0-2); EOSINOPHILS PERCENT AUTO 0 % (0-6); Hematocrit 36.9 % (33.0-51.0); IMMATURE GRAN ABSOLUTE AUTO 0.07 K/mm3 (0.00-0.10); IMMATURE GRAN PERCENT AUTO 1 % (0-1); LYMPHOCYTES ABSOLUTE AUTO 0.93 K/mm3 (0.84-5.20); LYMPHOCYTES PERCENT AUTO 13 % (21-46); MONOCYTES ABSOLUTE AUTO 0.09 K/mm3 (0.16-1.47); MONOCYTES PERCENT AUTO 1 % (4-13); Mean Corpuscular HGB 33.1 pg (26.0-34.0); Mean Corpuscular HGB Conc 32.5 g/dL (31.5-36.5); Mean Corpuscular Volume 102 fL (80-100); Mean Platelet Volume 10.6 fL (9.1-12.4); NEUTROPHILS ABSOLUTE AUTO 6.13 K/mm3 (1.96-9.15); NEUTROPHILS PERCENT AUTO 85 % (41-73); Platelet Count 157 K/mm3 (150-400); RDW Coefficient Variation 13.8 % (11.7-14.2); RDW Standard Deviation 52.1 fL (35.1-46.3); Red Blood Cell Count 3.63 M/mm3 (3.80-5.20); White Blood Cell Count 7.23 K/mm3 (4.00-11.30)
[2019-12-19 06:19] LABS: Albumin, Blood 2.6 g/dL (3.4-5.0); Anion Gap 6 mmol/L (6-16); Blood Urea Nitrogen 48 mg/dL (8-24); CO2, Blood 27 mmol/L (21-32); Calcium, Blood 8.7 mg/dL (8.5-10.1); Chloride, Blood 105 mmol/L (98-108); Creatinine, Blood 1.78 mg/dL (0.40-1.00); Glomerular Filtration Rate 32 (60-); Glucose, Blood 268 mg/dL (70-99); Phosphorus, Blood 3.3 mg/dL (2.5-4.9); Potassium, Blood 4.8 mmol/L (3.5-5.5); Sodium, Blood 138 mmol/L (136-145)
[2019-12-19 08:46] LABS: U Amphetamine Screen Not Detected; U Barbituate Screen Not Detected; U Benzodiazapine Screen Not Detected; U Buprenorphine Screen Not Detected; U Cannabinoids Screen DETECTED; U Cocaine Screen Not Detected; U Methadone Screen Not Detected; U Methamphetamine Screen Not Detected; U Opiates Screen Not Detected; U Oxycodone Screen Not Detected
[2019-12-19 08:47] LABS: U Propoxyphene Screen Not Detected
--- NOTE | 2019-12-19 12:53 | NUR ---
SHE ASKED ME THIS MORNING WHY SHE CAME TO THE HOSPITAL. I TOLD HER. THIS AFTERNOON SHE ASKED ME AGAIN WHY SHE IS HERE. I TOLD HER AGAIN. SHE ASKED WHERE SHE IS GOING WHEN SHE LEAVES. I TOLD HER I HEARD BACK TO [facility]. SHE DOESN'T KNOW HOW LONG SHE HAS LIVED THERE BUT SHE THINKS LONGER THAN WHEN SHE LIVED WITH HER FRIEND. SHE SAYS THERE ARE TOO MANY PEOPLE THERE AND THEY ARE "WACKO". SHE NEEDS JUST SBA TO AMBULATE IN THE ROOM. SHE LIKES TO SLEEP WHENEVER WE ARE NOT GIVING CARE OR SHE IS EATING. SHE EATS 100% QUICKLY. BIOX 86 TO 94%. BIOX BEST WHEN SHE IS AWAKE.
--- NOTE | 2019-12-19 18:45 | NUR ---
SHE RECEIVED SS INSULIN AT ALL MEALS TODAY. SHE EATS 100%. SHE IS INCONTINENT WHEN SHE SLEEPS BUT CONTINENT WHEN AWAKE. SHE AMBULATES WELL. SHE DOES NOT USE HER CALL LIGHT. SHE MAY BE DEVELOPMENTALLY DELAYED. BED AND CHAIR ALARMS USED.
--- NOTE | 2019-12-20 04:39 | NUR ---
SHIFT SUMMARY: VSS. AFEB. LSCTA. WEARING BIPAP ALL NIGHT, 02 93% WITH 3L BLEED IN. NO COUGHING HEARD TONIGHT. SOB WITH EXERTION. SLEPT THROUGH MUCH OF THE NIGHT. NO ACUTE CHANGES. BED LOW, BED ALARM ON. NO ATTEMPTS TO SELF T/F. HAS BEEN USING CALL BUTTON MUCH MORE TONIGHT FOR NEEDS. WILL CONT TO MONITOR.
[2019-12-20 06:14] LABS: Albumin, Blood 2.8 g/dL (3.4-5.0); Anion Gap 6 mmol/L (6-16); Blood Urea Nitrogen 52 mg/dL (8-24); Bun/Creatinine Ratio 29.4 (12.0-20.0); CO2, Blood 30 mmol/L (21-32); Calcium, Blood 9.3 mg/dL (8.5-10.1); Chloride, Blood 102 mmol/L (98-108); Creatinine, Blood 1.77 mg/dL (0.40-1.00); Glomerular Filtration Rate 32 (60-); Glucose, Blood 191 mg/dL (70-99); Phosphorus, Blood 3.7 mg/dL (2.5-4.9); Potassium, Blood 4.7 mmol/L (3.5-5.5); Sodium, Blood 138 mmol/L (136-145)
--- NOTE | 2019-12-20 12:37 | NUR ---
SHE HAS BEEN UP IN THE CHAIR FOR BOTH MEALS AND HAS SHOWERED TODAY. SHE KNEW SHE WAS IN THE HOSPITAL THIS MORNING BUT DIDN;T KNOW WHERE IT WAS COMPARED TO WHERE SHE LIVES. SHE WEARS A BANDAID A PATCH OVER HER RT EYE SHE SAYS BECAUSE IT IS BLIND AND IS OFF TO THE SIDE. WHEN SHE SHOWERED TODAY, SHE STAYED IN FOR 45 MIN AND FLOODED THE ROOM. SHE ALSO SMOKED BEHIND THE CLOSED DOOR. HER CIGARETTES AND AERIAL GUNNER ARE LOCKED UP IN HER MED DRAWER NOW. SHE HAD REFUSED THE NICOTINE PATCH THE PAST 2 MORNINGS BUT AGREED TO WEAR ONE NOW. CXR DONE. SHE FEELS BETTER TODAY. SINCE IT WOULD BE VERY INCONVENIENT FOR THE [facility] RN TO RECEIVE HER TODAY, SHE WILL STAY UNTIL TOMORROW. THE RN FROM WOULD HAVE HAD TO DRIVE TO [place] TO GRAVEL WHEELER ANY NEW MEDS, THEN DRIVE BACK TO [place].
--- NOTE | 2019-12-20 18:28 | NUR ---
SHE IS OUT TAKING A WALK WITH HER FRIEND FROM [place]. HER CIGARETTES ARE STILL LOCKED IN HER MED DRAWER. SHE HAS NO COMPLAINTS. SHE WANTS TO SWITCH FROM THE NICOTINE PATCH TO THE NICOTINE GUM. I GOT AN ORDER FROM . CBG BEFORE DINNER WAS OVER 300. HIGHER DOSE OF LANTUS INSULIN STARTS TONIGHT. SHE HAS REMAINED ON RA ALL DAY WITHOUT DIFFICULTY.
--- NOTE | 2019-12-21 05:25 | NUR ---
SHIFT ASSESSMENT: NO ACUTE CHANGES OVERNIGHT. PT FEELING MUCH BETTER, UP WALKING AROUND- INDEPENDENT IN ROOM. REQUESTING TO BE REMINDED OF THE REASON SHE IS IN THE HOSPITAL SEVERAL TIMES. SLEPT MOST OF NIGHT, WEAING BIPAP WITH 3L BLEED IN.
[2019-12-21 05:30] LABS: Albumin, Blood 2.7 g/dL (3.4-5.0); Anion Gap 7 mmol/L (6-16); Blood Urea Nitrogen 84 mg/dL (8-24); Bun/Creatinine Ratio 30.3 (12.0-20.0); CO2, Blood 28 mmol/L (21-32); Calcium, Blood 8.4 mg/dL (8.5-10.1); Chloride, Blood 101 mmol/L (98-108); Creatinine, Blood 2.77 mg/dL (0.40-1.00); Glomerular Filtration Rate 19 (60-); Glucose, Blood 182 mg/dL (70-99); Phosphorus, Blood 4.5 mg/dL (2.5-4.9); Potassium, Blood 4.2 mmol/L (3.5-5.5); Sodium, Blood 136 mmol/L (136-145)
--- NOTE | 2019-12-21 18:20 | NUR ---
SHIFT SUMMARY- PT ALERT AND ORIENTED TO SELF. SHE IS INDEPENDENT IN THE ROOM. PT USES BIPAP AT HOME AND IS CURRENTLY USING HOME SETTINGS PER REPORT. PT DENIES ANY PAIN OR DISCOMFORT. PT HAS SLEPT THROUGH THE DAY AND NEEDS ENCOURAGEMENT TO WAKE UP AND SIT AT THE EDGE OF THE BED TO EAT HER FOOD, SHE WILL SLEEP STRAIGHT THROUGH MEALS IF STAFF DO NOT WAKE HER. PLAN IS FOR PT TO DISCHARGE BACK TO [facility] TOMORROW. WOULD HAVE BEEN TODAY BUT PT RENAL FUNCTION DECLINED AND SO SHE WAS HELD AN ADDITIONAL DAY TO SEE IF IT IMPROVES. PT RECIEVED A OT BOLUS OF 500ML OF NS THIS AFTERNOON. PT HAS BEEN SLEEPING AND NOT DRINKING, DESPITE ENCOURAGEMENT FROM STAFF. INSULIN SLIDING SCALE CHANGED TODAY D/T ELEVATED BLOOD SUGARS. PT RECIEVED 10 UNITS OF HUMALOG PRIOR TO DINNER BG WAS 271. PT IS INCONTINENT WHEN SHE SLEEPS AND HAS BEEN CHANGING HER OWN ATTENDS T/O THE DAY.
[2019-12-22 06:13] LABS: Albumin, Blood 2.7 g/dL (3.4-5.0); Anion Gap 5 mmol/L (6-16); Blood Urea Nitrogen 69 mg/dL (8-24); Bun/Creatinine Ratio 32.4 (12.0-20.0); CO2, Blood 29 mmol/L (21-32); Calcium, Blood 8.6 mg/dL (8.5-10.1); Chloride, Blood 106 mmol/L (98-108); Creatinine, Blood 2.13 mg/dL (0.40-1.00); Glomerular Filtration Rate 26 (60-); Glucose, Blood 179 mg/dL (70-99); Phosphorus, Blood 3.4 mg/dL (2.5-4.9); Potassium, Blood 4.4 mmol/L (3.5-5.5); Sodium, Blood 140 mmol/L (136-145)
--- NOTE | 2019-12-22 07:30 | NUR ---
SHIFT SUMMARY PATIENT SLEPT SOUNDLY ALL SHIFT. OLD IV REMOVED FROM RIGHT FOREARM AND NEW ONE PLACED IN RIGHT FOREARM. NEW IV PATENT AND FLUSHED. BED IN LOWEST POSITION WITH WHEELS LOCKED. CALL LIGHT WITHIN REACH. REPORT GIVEN TO ONCOMING RN.
--- NOTE | 2019-12-22 12:41 | NUR ---
SPOKE WITH FELIZ NICOLAS, PT NEEDS SLEEP STUDY IN ORDER TO DC WITH BLEED-IN O2 TO [facility]. PLAN WILL BE FOR SLEEP STUDY TONIGHT, AND POSSIBLE DC TOMORROW. HOME 02 EVAL COMPLETED AT ABOUT 1200.
--- NOTE | 2019-12-22 19:48 | NUR ---
CHANGE IN PT STATUS: AT ABOUT 1630 THIS RN CALLED INTO PT ROOM. ENTRY LEVEL RECEPTIONIST REPORTS PT HAS VIEW SCORE OF 2. BP IS HARD TO OBTAIN DUE TO PT MOVEMENT, ASWELL HR. PT HAVING TREMORS AND SEEMS PRETTY ANXIOUS. PT NEEDING 2L O2 VIA NC AT THIS TIME WELL, WHEN HAD BEEN STABLE ON RA ALL DAY. PT REPORTS "FEELING FINE". THIS RN CONCERNED ABOUT CHANGE IN PT STATUS AND CALLED DR. SARAVIA AT ABOUT 1645. IT RISK AND ASSURANCE SENIOR MANAGER CAR, ALSO NOTIFIED OF PT STATUS AND IN ROOM AT ABOUT 1640 DR. SARAVIA ORDERED STAT EKG AND TELE MONITORING. EKG RESULTS SHOW NO CHANGE FROM PREVIOUSLY DONE. TELE MONITOR REPORTS NSR WITH BBB. PT DENIES CHEST PAIN. PRN HALDOL ALSO GIVEN FOR PT ANXIETY AT ABOUT 1724 PT VSS, AND PT SEEMS LESS ANXIOUS. ALTHOUGH WITH MORE OBSERVATION, PT SEEMS MORE CONFUSED THAN HER BASELINE AND IS OOB WITHOUT ASSISTANCE, NOT USING CALL LIGHT AND SETTING OFF BED ALARM TO GET TO COMMODE. PT NEEDS RE ORIENTED MORE OFTEN AND SEEMS MORE UNSTEADY AND WEAK ON HER FEET. DR. SARAVIA MADE AWARE OF THESE CHANGES AT ABOUT 1830. NO NEW ORDERS AT THIS TIME.
--- NOTE | 2019-12-22 20:03 | NUR ---
SUMMARY: SEE PREVIOUS NOTE BY THIS RN. PLAN IS FOR SLEEP STUDY TONIGHT AND POSSIBLE DC TO [facility] TOMORROW. REPORT GIVEN TO JOSE EDUARDO WATERMAN.
[2019-12-23 06:01] LABS: Albumin, Blood 2.7 g/dL (3.4-5.0); Anion Gap 5 mmol/L (6-16); Blood Urea Nitrogen 75 mg/dL (8-24); Bun/Creatinine Ratio 32.6 (12.0-20.0); CO2, Blood 28 mmol/L (21-32); Calcium, Blood 8.6 mg/dL (8.5-10.1); Chloride, Blood 105 mmol/L (98-108); Glomerular Filtration Rate 24 (60-); Glucose, Blood 176 mg/dL (70-99); Phosphorus, Blood 3.7 mg/dL (2.5-4.9); Potassium, Blood 4.1 mmol/L (3.5-5.5); Sodium, Blood 138 mmol/L (136-145)
--- NOTE | 2019-12-23 06:26 | NUR ---
EOS:PATIENT WAS PLEASANTLY CONFUSED THIS SHIFT. SHE HAS VERY STML, AND IS GETTING UP FREQUENTLY, MOVING AROUND SETTING OFF HER BED ALARM. SHE SAYS SHE DOESNT REMEMBER BEING TOLD TO CALL FOR ASSISTANCE. A SLEEP STUDY WAS PLACED BUT THEN THE PATIENT REMOVED IT AND PUT ON HER CPAP. PER RT THIS CONCLUDED THE SLEEP STUDY. OTHERWISE PLEASANT AND COOPERATIVE WITH CARE. BED LOW LOCKED AND ALARMED THIS SHIFT. CALL STILL WITHIN REACH. HOURLY ROUNDS WERE COMPLETED PER PROTOCOL.
--- NOTE | 2019-12-23 18:42 | NUR ---
SHIFT SUMMARY PATIENT DENIES PAIN, NAUSEA, AND SHORTNESS OF BREATH. PATIENT UP SBA TO BATHROOM. PATIENT TREMULOUS. PATIENT WILL HAVE A SLEEP STUDY TONIGHT TO DETERMINE IF OXYGEN BLEED IN TO CPAP IS NECCESARY FOR DISCHARGE. CALL LIGHT IN REACH.
--- NOTE | 2019-12-24 05:22 | NUR ---
SHIFT SUMMARY PT IS A 54 Y/O FEMALE, ADMITTED FOR COPD EXACERBATION. SHE IS A&O X 2, FORGETFUL AND CONFUSED AT TIMES BUT COOPERATIVE WITH CARE. PT IS A 1P/SBA UP TO THE BATHROOM. VITAL SIGNS STABLE. NO COMPLAINTS OF PAIN, NAUSEA OR SOB. PT REMAINED ON A BIPAP MACHINE AND COMPLETED A SLEEP STUDY PER RT. PT SLEPT WELL DURING THE NIGHT. NO OTHER ACUTE CHANGES IN PT CONDITION NOTED. WILL CONTINUE TO MONITOR AND TREAT PER EMAR UNTIL HAND OFF TO DAY SHIFT RN.
[2019-12-24 06:06] LABS: Albumin, Blood 2.8 g/dL (3.4-5.0); Anion Gap 7 mmol/L (6-16); Blood Urea Nitrogen 60 mg/dL (8-24); Bun/Creatinine Ratio 30.8 (12.0-20.0); CO2, Blood 25 mmol/L (21-32); Calcium, Blood 8.6 mg/dL (8.5-10.1); Chloride, Blood 108 mmol/L (98-108); Creatinine, Blood 1.95 mg/dL (0.40-1.00); Glomerular Filtration Rate 29 (60-); Glucose, Blood 151 mg/dL (70-99); Potassium, Blood 4.6 mmol/L (3.5-5.5); Sodium, Blood 140 mmol/L (136-145)
[2019-12-24] MEDS ORDERED: INSULANPEN SC (12:08)
[2019-12-24] MEDS ORDERED: Prednisone10 MG PO (12:12)
--- NOTE | 2019-12-24 14:14 | NUR ---
DISCHARGE DISCHARGE BACK TO [facility]IA [facility]. PATIENT ESCORTED TO [facility] VIA WHEELCHAIR. DISCHARGE PACKET GIVEN TO PATIENT. IV REMOVED WITHOUT DIFFICULTY. BELONGINGS WITH PATIENT. REPORT CALLED TO [facility] TO ADJUST PATIENT'S BIPAP SETTINGS AT FACILTY.
== END 2019-12-24 14:00 | disposition home or self-care (01) | DRG 189 ==
LOC: ER 15:06 → MEDS 15:07
PROVIDERS: Emergency Medicine; Internal Medicine; Nurse Practitioner Acute Care; ADMIT Family Medicine
DX: J96.21 Acute and chronic respiratory failure with hypoxia (principal); I13.0 Hypertensive heart and chronic kidney disease with heart failure and stage 1 through stage 4 chronic kidney disease, or unspecified chronic kidney disease; I50.22 Chronic systolic (congestive) heart failure; N18.4 Chronic kidney disease, stage 4 (severe); N17.9 Acute kidney failure, unspecified; J43.9 Emphysema, unspecified; E11.22 Type 2 diabetes mellitus with diabetic chronic kidney disease; E03.9 Hypothyroidism, unspecified; E66.01 Morbid (severe) obesity due to excess calories; F03.90 Unspecified dementia, unspecified severity, without behavioral disturbance, psychotic disturbance, mood disturbance, and anxiety; F17.210 Nicotine dependence, cigarettes, uncomplicated; F31.9 Bipolar disorder, unspecified; F32.9 Major depressive disorder, single episode, unspecified; G40.909 Epilepsy, unspecified, not intractable, without status epilepticus; G47.33 Obstructive sleep apnea (adult) (pediatric); I25.10 Atherosclerotic heart disease of native coronary artery without angina pectoris; I25.2 Old myocardial infarction; K21.9 Gastro-esophageal reflux disease without esophagitis; Z68.39 Body mass index [BMI] 39.0-39.9, adult; Z79.4 Long term (current) use of insulin; E78.5 Hyperlipidemia, unspecified; Z95.5 Presence of coronary angioplasty implant and graft; E11.65 Type 2 diabetes mellitus with hyperglycemia; F41.9 Anxiety disorder, unspecified; F43.10 Post-traumatic stress disorder, unspecified
CPT/HCPCS: 36415; 71045; 71046; 80048; 80053; 80069; 81001; 82803; 82947; 83036; 83880; 84145; 84484; 85025; 93005; 93010; 93306; 94640; 94660; 94664; 94667; 94760; 94761; 94762; 96374; 96375; 96376; 98960; 99285-25; 99407; A9270; G0378; J1940; J2930; J7030; J7040; J7512

== ENCOUNTER → 2020-03-18 | Outpatient (CLI) | payer MEDICARE, OTHER ==
[~2020-03-18] MED LIST changes: +AMLO5 PO; +INSULANPEN SC; +LOSA25 PO; +MELATONIN5 M1 PO; +Pedi-Dri 100,0060 GM; +Prednisone10 MG PO; +TOUJEO SOL300 UNIT/1 SC
[2020-03-18 13:59] LABS: Valproic Acid 39.9 ug/mL (50.0-100.0)
== END ==
LOC: LAB SHORT 12:48 → LAB 12:48
PROVIDERS: Psychiatry & Neurology Psychiatry
DX: Z51.81 Encounter for therapeutic drug level monitoring (principal); E11.22 Type 2 diabetes mellitus with diabetic chronic kidney disease; N18.9 Chronic kidney disease, unspecified; Z79.899 Other long term (current) drug therapy
CPT/HCPCS: 80164; 83036

== ENCOUNTER → 2020-03-24 | Outpatient (CLI) | payer MEDICARE, OTHER ==
[2020-03-24 18:36] LABS: Source, Urine Clean Catch
[2020-03-24 19:32] LABS: Bilirubin, Urine Neg (Neg); Blood, Urine Neg (Neg); Glucose Qualitative, Urine Neg (Neg); Ketones, Urine Neg (Neg); Leukocyte Esterase, Urine 1+ (Neg); Nitrite, Urine Neg (Neg); Protein, Urine 3+ (Neg); Specific Gravity, Urine 1.015 (1.003-1.022); Urobilinogen, Urine NORM (Normal)
[2020-03-24 19:46] LABS: Appearance, Urine Clear (Clear); Bacteria Mod /hpf; Color, Urine Yellow (P-Yellow); Red Blood Cells, Urine Not Seen /hpf (0-2); Squamous Epithelial Cells Few /hpf (Few); White Blood Cells, Urine 0-2 /hpf (0-5)
== END | disposition home or self-care (01) ==
LOC: LAB 18:33 → LAB SHORT 18:33
PROVIDERS: Nurse Practitioner Family
DX: N39.0 Urinary tract infection, site not specified (principal)
CPT/HCPCS: 81001; 87086

== ENCOUNTER → 2020-04-04 | Outpatient (CLI) | payer MEDICARE, OTHER | END | disposition home or self-care (01) | LOC: LAB SHORT 08:00 → LAB 08:00 | DX: E11.9 Type 2 diabetes mellitus without complications (principal) | CPT/HCPCS: 82043 ==

== ENCOUNTER → 2020-04-04 | Outpatient (CLI) | payer MEDICARE, OTHER ==
[2020-04-04 19:01] LABS: BASOPHILS ABSOLUTE AUTO 0.03 K/mm3 (0.00-0.23); BASOPHILS PERCENT AUTO 0 % (0-2); EOSINOPHILS ABSOLUTE AUTO 0.06 K/mm3 (0.00-0.68); EOSINOPHILS PERCENT AUTO 1 % (0-6); Hemoglobin 11.7 g/dL (11.5-16.0); IMMATURE GRAN ABSOLUTE AUTO 0.03 K/mm3 (0.00-0.10); IMMATURE GRAN PERCENT AUTO 0 % (0-1); LYMPHOCYTES ABSOLUTE AUTO 3.02 K/mm3 (0.84-5.20); LYMPHOCYTES PERCENT AUTO 45 % (21-46); MONOCYTES PERCENT AUTO 9 % (4-13); Mean Corpuscular HGB 33.4 pg (26.0-34.0); Mean Corpuscular HGB Conc 32.5 g/dL (31.5-36.5); Mean Corpuscular Volume 103 fL (80-100); NEUTROPHILS ABSOLUTE AUTO 3.05 K/mm3 (1.96-9.15); NEUTROPHILS PERCENT AUTO 45 % (41-73); RDW Coefficient Variation 13.2 % (11.7-14.2); RDW Standard Deviation 49.3 fL (35.1-46.3); White Blood Cell Count 6.79 K/mm3 (4.00-11.30)
[2020-04-04 19:09] LABS: Mean Platelet Volume 10.5 fL (9.1-12.4); Platelet Count 133 K/mm3 (150-400)
[2020-04-04 20:06] LABS: Bilirubin, Total 0.3 mg/dL (0.1-1.0); Bun/Creatinine Ratio 24.1 (12.0-20.0); Calcium, Blood 8.8 mg/dL (8.5-10.1); Creatinine, Blood 1.87 mg/dL (0.40-1.00); Globulin, Blood 3.1 g/dL (2.2-4.0); Potassium, Blood 4.6 mmol/L (3.5-5.5); Total Protein, Blood 6.1 g/dL (6.4-8.2)
== END ==
LOC: LAB SHORT 16:29 → LAB 16:29
PROVIDERS: Nurse Practitioner Family
DX: I12.9 Hypertensive chronic kidney disease with stage 1 through stage 4 chronic kidney disease, or unspecified chronic kidney disease (principal); N18.4 Chronic kidney disease, stage 4 (severe)
CPT/HCPCS: 80053; 85025

== ENCOUNTER → 2020-07-08 | Outpatient (CLI) | payer MEDICARE, OTHER ==
[2020-07-08 19:36] LABS: Source, Urine Clean Catch
[2020-07-08 19:57] LABS: Appearance, Urine Clear (Clear); Bilirubin, Urine Neg (Neg); Blood, Urine Neg (Neg); Color, Urine Yellow (P-Yellow); Glucose Qualitative, Urine Neg (Neg); Ketones, Urine Neg (Neg); Leukocyte Esterase, Urine Neg (Neg); Nitrite, Urine Neg (Neg); Protein, Urine 2+ (Neg); Urobilinogen, Urine NORM (Normal)
[2020-07-08 20:10] LABS: Bacteria Rare /hpf; Red Blood Cells, Urine Not Seen /hpf (0-2); Squamous Epithelial Cells Few /hpf (Few); White Blood Cells, Urine Rare /hpf (0-5)
== END | disposition home or self-care (01) ==
LOC: LAB 19:34 → LAB SHORT 19:34
PROVIDERS: Nurse Practitioner Family
DX: N39.0 Urinary tract infection, site not specified (principal)
CPT/HCPCS: 81001

== ENCOUNTER → 2021-01-12 | Outpatient (CLI) | payer MEDICARE, OTHER ==
[~2021-01-12] MED LIST changes: +FURO20; +SYMBICORT 16010.2 GM; +TRADJENTA5 MG
[2021-01-12 19:18] LABS: Source, Urine Clean Catch
[2021-01-12 20:11] LABS: Appearance, Urine Clear (Clear); Bilirubin, Urine Neg (Neg); Blood, Urine 1+ (Neg); Color, Urine Yellow (P-Yellow); Glucose Qualitative, Urine 3+ (Neg); Ketones, Urine Neg (Neg); Leukocyte Esterase, Urine Neg (Neg); Nitrite, Urine Neg (Neg); Protein, Urine 2+ (Neg); Urobilinogen, Urine NORM (Normal)
[2021-01-12 20:27] LABS: Bacteria Not Seen /hpf; Red Blood Cells, Urine Not Seen /hpf (0-2); Squamous Epithelial Cells Few /hpf (Few); White Blood Cells, Urine 0-2 /hpf (0-5)
== END | disposition home or self-care (01) ==
LOC: LAB SHORT 19:16 → PLD 19:16
PROVIDERS: Nurse Practitioner Family
DX: N39.0 Urinary tract infection, site not specified (principal)
CPT/HCPCS: 81001

== ENCOUNTER 2021-01-22 21:29 | Emergency (ER) | payer MEDICARE, OTHER ==
[~2021-01-22] VITALS: Ht 162.6 cm; Wt 95.2 kg
[~2021-01-22 21:29] MED LIST changes: -FURO20; -SYMBICORT 16010.2 GM; -TRADJENTA5 MG
== END 2021-01-22 23:30 | disposition home or self-care (01) ==
LOC: ER 21:29
DX: S40.011A Contusion of right shoulder, initial encounter (principal); S09.90XA Unspecified injury of head, initial encounter; E03.9 Hypothyroidism, unspecified; E78.5 Hyperlipidemia, unspecified; J44.9 Chronic obstructive pulmonary disease, unspecified; K21.9 Gastro-esophageal reflux disease without esophagitis; E11.22 Type 2 diabetes mellitus with diabetic chronic kidney disease; I13.0 Hypertensive heart and chronic kidney disease with heart failure and stage 1 through stage 4 chronic kidney disease, or unspecified chronic kidney disease; I50.9 Heart failure, unspecified; N18.4 Chronic kidney disease, stage 4 (severe); Z88.5 Allergy status to narcotic agent; Z79.82 Long term (current) use of aspirin; Z79.899 Other long term (current) drug therapy; W01.190A Fall on same level from slipping, tripping and stumbling with subsequent striking against furniture, initial encounter
CPT/HCPCS: 36415; 99283

== ENCOUNTER 2021-05-09 11:15 | Day surgery (SDC) | payer MEDICARE, OTHER ==
[~2021-05-09] VITALS: Ht 162.6 cm; Wt 96.5 kg
[2021-05-09] MEDS ORDERED: FURO20 (12:10)
[2021-05-09] MEDS ORDERED: SYMBICORT 16010.2 GM (12:10)
[2021-05-09] MEDS ORDERED: TRADJENTA5 MG (12:11)
--- NOTE | 2021-05-09 14:25 | NUR ---
05/09/21 1425 Yessenia Romo 8.5 ML NACL INJECTED FOR POLYP REMOVAL.
== END 2021-05-09 15:10 | disposition home or self-care (01) ==
LOC: ORSCSDS 11:15
PROVIDERS: Student in an Organized Health Care Education/Training Program
PROC: 0DBH8ZX Excision of Cecum, Via Natural or Artificial Opening Endoscopic, Diagnostic (ICD-10-PCS; principal; 2021-05-09 12:45)
PROC: 0DBC8ZX Excision of Ileocecal Valve, Via Natural or Artificial Opening Endoscopic, Diagnostic (ICD-10-PCS; principal; 2021-05-09 12:45)
PROC: 0DBM8ZX Excision of Descending Colon, Via Natural or Artificial Opening Endoscopic, Diagnostic (ICD-10-PCS; principal; 2021-05-09 12:45)
PROC: 0DBL8ZX Excision of Transverse Colon, Via Natural or Artificial Opening Endoscopic, Diagnostic (ICD-10-PCS; principal; 2021-05-09 12:45)
DX: R19.5 Other fecal abnormalities (principal); D12.0 Benign neoplasm of cecum; D12.3 Benign neoplasm of transverse colon; D12.4 Benign neoplasm of descending colon; J44.9 Chronic obstructive pulmonary disease, unspecified; E11.22 Type 2 diabetes mellitus with diabetic chronic kidney disease; I12.9 Hypertensive chronic kidney disease with stage 1 through stage 4 chronic kidney disease, or unspecified chronic kidney disease; N18.32 Chronic kidney disease, stage 3b; G40.909 Epilepsy, unspecified, not intractable, without status epilepticus; G47.33 Obstructive sleep apnea (adult) (pediatric); Z79.4 Long term (current) use of insulin; Z79.899 Other long term (current) drug therapy; F17.210 Nicotine dependence, cigarettes, uncomplicated
CPT/HCPCS: 82947; 88305; J2704; J7120

== ENCOUNTER → 2021-08-30 | Outpatient (CLI) | payer MEDICARE, OTHER ==
[~2021-08-30] MED LIST changes: +FURO20; +SYMBICORT 16010.2 GM; +TRADJENTA5 MG
[2021-08-30 13:56] LABS: BASOPHILS ABSOLUTE AUTO 0.03 K/mm3 (0.00-0.23); BASOPHILS PERCENT AUTO 0 % (0-2); EOSINOPHILS ABSOLUTE AUTO 0.14 K/mm3 (0.00-0.68); EOSINOPHILS PERCENT AUTO 2 % (0-6); Hemoglobin 11.4 g/dL (11.5-16.0); IMMATURE GRAN ABSOLUTE AUTO 0.12 K/mm3 (0.00-0.10); IMMATURE GRAN PERCENT AUTO 1 % (0-1); LYMPHOCYTES ABSOLUTE AUTO 3.63 K/mm3 (0.84-5.20); LYMPHOCYTES PERCENT AUTO 42 % (21-46); MONOCYTES ABSOLUTE AUTO 0.72 K/mm3 (0.16-1.47); MONOCYTES PERCENT AUTO 8 % (4-13); Mean Corpuscular HGB Conc 32.6 g/dL (31.5-36.5); Mean Corpuscular Volume 101 fL (80-100); Mean Platelet Volume 9.8 fL (9.1-12.4); NEUTROPHILS ABSOLUTE AUTO 3.92 K/mm3 (1.96-9.15); NEUTROPHILS PERCENT AUTO 46 % (41-73); Platelet Count 210 K/mm3 (150-400); RDW Coefficient Variation 14.8 % (11.7-14.2); RDW Standard Deviation 55.8 fL (35.1-46.3); Red Blood Cell Count 3.45 M/mm3 (3.80-5.20); White Blood Cell Count 8.56 K/mm3 (4.00-11.30)
[2021-08-30 14:12] LABS: Alanine Aminotransfer (ALT/SGP 25 U/L (12-78); Albumin/Globulin Ratio 0.8 (0.8-1.8); Alk Phos 67 U/L (50-136); Anion Gap 5 mmol/L (6-16); Aspartate Aminotrans (AST/SGOT 15 U/L (12-37); Bilirubin, Total 0.4 mg/dL (0.1-1.0); Blood Urea Nitrogen 44 mg/dL (8-24); Bun/Creatinine Ratio 26.5 (12.0-20.0); CHOL/HDL RATIO 1.9; CO2, Blood 26 mmol/L (21-32); Calcium, Blood 8.7 mg/dL (8.5-10.1); Chloride, Blood 106 mmol/L (98-108); Cholesterol 131 mg/dL (50-200); Creatinine, Blood 1.66 mg/dL (0.40-1.00); Glomerular Filtration Rate 32 (60-); Glucose, Blood 78 mg/dL (70-99); HDL Cholesterol 69 mg/dL (>39); LDL/HDL RATIO 0.7; Low Density Lipoprotein Chol 45 mg/dL (0-110); Potassium, Blood 4.1 mmol/L (3.5-5.5); Sodium, Blood 137 mmol/L (136-145); Triglycerides 83 mg/dL (30-160); Very Low Density Lipoprot Chol 17 mg/dL (6-32)
[2021-08-31 08:11] LABS: HCV AB <0.1 (0.0-0.9)
[2021-08-31 09:11] LABS: HIV SCREEN 4TH GENERATION WRFX Non Reactive (Non Reactive)
== END | disposition home or self-care (01) ==
LOC: LAB 07:35 → LAB SHORT 07:35
PROVIDERS: Nurse Practitioner Family
DX: Z11.4 Encounter for screening for human immunodeficiency virus [HIV] (principal); Z11.59 Encounter for screening for other viral diseases; Z13.6 Encounter for screening for cardiovascular disorders; E11.65 Type 2 diabetes mellitus with hyperglycemia; Z79.4 Long term (current) use of insulin
CPT/HCPCS: 80053; 80061; 83036; 85025; 86803; 87389

== ENCOUNTER 2021-10-15 23:35 | Inpatient (IN) | payer MEDICARE, OTHER ==
[~2021-10-15] VITALS: Ht 162.6 cm; Wt 117.9 kg
[~2021-10-15 23:35] MED LIST changes: +CARBOXYMETHYLCE15 ML BOTHEYES; +COMBIVENT RESPIM4 G1 INH; -COMBIVENT RESPIM4 GM INH; -FURO20; -Refresh Plus1 EACH BOTHEYES; -SYMBICORT 16010.2 GM; +SYMBICORT 16010.2 GM INH
[2021-10-16 00:44] LABS: Bun/Creatinine Ratio 28.8 (12.0-20.0); Calcium, Blood 8.9 mg/dL (8.5-10.1); Creatinine, Blood 2.4 mg/dL (0.40-1.00); Potassium, Blood 4.2 mmol/L (3.5-5.5); Thyroid Stimulating Hormone 0.247 uIU/mL (0.360-4.800)
[2021-10-16] MEDS ORDERED: Vitamin B-121000 MCG SL (00:48)
[2021-10-16 01:12] LABS: BASOPHILS ABSOLUTE AUTO 0.02 K/mm3 (0.00-0.23); BASOPHILS PERCENT AUTO 0 % (0-2); EOSINOPHILS PERCENT AUTO 0 % (0-6); Hematocrit 31.6 % (33.0-51.0); Hemoglobin 10.4 g/dL (11.5-16.0); IMMATURE GRAN ABSOLUTE AUTO 0.09 K/mm3 (0.00-0.10); IMMATURE GRAN PERCENT AUTO 1 % (0-1); LYMPHOCYTES ABSOLUTE AUTO 2.58 K/mm3 (0.84-5.20); LYMPHOCYTES PERCENT AUTO 22 % (21-46); MONOCYTES ABSOLUTE AUTO 1.67 K/mm3 (0.16-1.47); MONOCYTES PERCENT AUTO 14 % (4-13); Mean Corpuscular HGB 33.8 pg (26.0-34.0); Mean Corpuscular HGB Conc 32.9 g/dL (31.5-36.5); Mean Corpuscular Volume 103 fL (80-100); Mean Platelet Volume 10.2 fL (9.1-12.4); NEUTROPHILS ABSOLUTE AUTO 7.52 K/mm3 (1.96-9.15); NEUTROPHILS PERCENT AUTO 63 % (41-73); Platelet Count 133 K/mm3 (150-400); RDW Coefficient Variation 14.3 % (11.7-14.2); RDW Standard Deviation 54.4 fL (35.1-46.3); Red Blood Cell Count 3.08 M/mm3 (3.80-5.20); White Blood Cell Count 11.88 K/mm3 (4.00-11.30)
[2021-10-16 01:46] LABS: Source, Urine Clean Catch
[2021-10-16 01:51] LABS: Influenza A, PCR NEGATIVE (NEGATIVE); Influenza B, PCR NEGATIVE (NEGATIVE); Resp Syncytial Virus, PCR NEGATIVE (NEGATIVE); SARS-Cov-2 (COVID-19) PCR, MMC NEGATIVE (NEGATIVE)
[2021-10-16 02:05] LABS: Bilirubin, Urine Neg (Neg); Blood, Urine 1+ (Neg); Glucose Qualitative, Urine Neg (Neg); Ketones, Urine Neg (Neg); Leukocyte Esterase, Urine 2+ (Neg); Nitrite, Urine Neg (Neg); Protein, Urine 2+ (Neg); Specific Gravity, Urine 1.015 (1.003-1.022); Urobilinogen, Urine NORM (Normal)
[2021-10-16 02:05] LABS: Free Thyroxine 1.01 ng/dL (0.70-1.60); Triiodothyronine, Free 1.34 pg/mL (2.18-3.98)
[2021-10-16 02:16] LABS: Appearance, Urine Hazy (Clear); Color, Urine Yellow (P-Yellow)
[2021-10-16 02:17] LABS: Bacteria Mod /hpf; Red Blood Cells, Urine Rare /hpf (0-2); Squamous Epithelial Cells Mod /hpf (Few); White Blood Cells, Urine 50-100 /hpf (0-5)
[2021-10-16 06:52] LABS: Base Excess Venous -3.2 mmol/L; Bicarbonate Venous 21.7 mmol/L (24.0-30.0); PCO2 Venous 46.6 mmHg (38-42); PO2 Venous 84.5 mmHg (38-42); pH Blood Venous 7.31 (7.34-7.37)
[2021-10-16] MEDS ORDERED: LOPERAMIDE2 M8 PO (15:37)
[2021-10-16] MEDS ORDERED: MIRALAX17 GM PO (15:42)
[2021-10-16] MEDS ORDERED: Vitamin B Comple1 EA PO (15:52)
[2021-10-16] MEDS ORDERED: SENN187 PO (15:53)
--- NOTE | 2021-10-16 17:05 | NUR ---
PT ARRIVED TO FLOOR 1430 AOX1 AND VERY SOMULENT. PT WILL AROUSE WHEN SPOKE TO, BUT JUST WANTS TO SLEEP AT THIS TIME. PT WAS A TWO PERSON TRANSFER FROM CART TO BED. PT MAINTAINING ON 2L O2 90s AT THIS TIME. BED ALARM IS IN PLACE AND CALL LIGHT WITHIN REACH. WILL CONTINUE TO MONITOR.
[2021-10-17 05:00] LABS: BASOPHILS ABSOLUTE AUTO 0.03 K/mm3 (0.00-0.23); BASOPHILS PERCENT AUTO 0 % (0-2); EOSINOPHILS PERCENT AUTO 0 % (0-6); Hematocrit 32.9 % (33.0-51.0); Hemoglobin 10.6 g/dL (11.5-16.0); IMMATURE GRAN ABSOLUTE AUTO 0.15 K/mm3 (0.00-0.10); IMMATURE GRAN PERCENT AUTO 2 % (0-1); LYMPHOCYTES ABSOLUTE AUTO 1.04 K/mm3 (0.84-5.20); LYMPHOCYTES PERCENT AUTO 15 % (21-46); MONOCYTES ABSOLUTE AUTO 0.16 K/mm3 (0.16-1.47); MONOCYTES PERCENT AUTO 2 % (4-13); Mean Corpuscular HGB 33.2 pg (26.0-34.0); Mean Corpuscular HGB Conc 32.2 g/dL (31.5-36.5); Mean Corpuscular Volume 103 fL (80-100); Mean Platelet Volume 10.4 fL (9.1-12.4); NEUTROPHILS ABSOLUTE AUTO 5.64 K/mm3 (1.96-9.15); NEUTROPHILS PERCENT AUTO 80 % (41-73); Platelet Count 154 K/mm3 (150-400); RDW Coefficient Variation 13.6 % (11.7-14.2); RDW Standard Deviation 51.9 fL (35.1-46.3); Red Blood Cell Count 3.19 M/mm3 (3.80-5.20); White Blood Cell Count 7.02 K/mm3 (4.00-11.30)
[2021-10-17 06:23] LABS: Albumin, Blood 2.4 g/dL (3.4-5.0); Anion Gap 12 mmol/L (6-16); Blood Urea Nitrogen 65 mg/dL (8-24); Bun/Creatinine Ratio 33.5 (12.0-20.0); CO2, Blood 21 mmol/L (21-32); Calcium, Blood 9.3 mg/dL (8.5-10.1); Chloride, Blood 109 mmol/L (98-108); Creatinine, Blood 1.94 mg/dL (0.40-1.00); Glomerular Filtration Rate 27 (60-); Glucose, Blood 207 mg/dL (70-99); Magnesium, Blood 2.3 mg/dL (1.6-2.4); Phosphorus, Blood 4.6 mg/dL (2.5-4.9); Potassium, Blood 5.2 mmol/L (3.5-5.5); Sodium, Blood 142 mmol/L (136-145)
--- NOTE | 2021-10-17 06:41 | NUR ---
SHIFT SUMMARY PT AOX2 AND DROWSY AT THE START OF THIS SHIFT. PT. REMAINS ON O2 2L WITH 95% MAINTAIN THIS SHIFT. NO S/S OF DISTRESS AND PT RESTED WELL THIS WITH RISE AND FALL OF CHEST. WILL CONTINUE TO MONITOR UNTIL REPORT IS GIVEN.
--- NOTE | 2021-10-17 18:17 | NUR ---
SHIFT SUMMARY Pateint was AA & O x2-3 during day and easily reoriented to place and time. No c/o pain or SOB voiced. VSS, NAD noted. Was able to be assisted up to BSC with 1 person assist. Tolerating and eating meals well. 1 BM on shift today
[2021-10-18] MEDS ORDERED: CARB10OTL BOTHEARS (15:57)
[2021-10-18] MEDS ORDERED: ALMACONE SUSPE355 ML PO (16:10)
[2021-10-18] MEDS ORDERED: ALEVAZOL56.7 G1 TOP (16:12)
--- NOTE | 2021-10-18 17:22 | NUR ---
SHIFT SUMMARY PATIENT HAS HAD A FAIRLY GOOD DAY. SAT UP IN CHAIR FOR MAJORITY OF THE DAY FROM 10AM UNTIL 5PM W/O ANY ISSUES. AA &O X2 BUT EASILY REORIENTED. NO C/O PAIN OR SOB VOICED. NAD NOTED AND VSS. WAS ABLE TO WEAN O2 OFF TODAY AND MAINTAIN AN O2 LEVEL OF 94-96% W/O ANY DIFFICULTY. TOLERATED ALL MEALS. NOTIFIED FOR PLAN TO GO BACK TO [facility] ON TOMORROW
[2021-10-19 05:11] LABS: PO2 Venous 126 mmHg (38-42); pH Blood Venous 7.52 (7.34-7.37)
[2021-10-19 05:12] LABS: Base Excess Venous 3.9 mmol/L
[2021-10-19 05:32] LABS: BASOPHILS ABSOLUTE AUTO 0.07 K/mm3 (0.00-0.23); BASOPHILS PERCENT AUTO 1 % (0-2); EOSINOPHILS ABSOLUTE AUTO 0.01 K/mm3 (0.00-0.68); EOSINOPHILS PERCENT AUTO 0 % (0-6); Hematocrit 31.7 % (33.0-51.0); Hemoglobin 10.6 g/dL (11.5-16.0); IMMATURE GRAN ABSOLUTE AUTO 0.33 K/mm3 (0.00-0.10); IMMATURE GRAN PERCENT AUTO 3 % (0-1); LYMPHOCYTES PERCENT AUTO 39 % (21-46); MONOCYTES ABSOLUTE AUTO 0.68 K/mm3 (0.16-1.47); MONOCYTES PERCENT AUTO 7 % (4-13); Mean Corpuscular HGB 33.5 pg (26.0-34.0); Mean Corpuscular HGB Conc 33.4 g/dL (31.5-36.5); Mean Corpuscular Volume 100 fL (80-100); Mean Platelet Volume 9.9 fL (9.1-12.4); NEUTROPHILS ABSOLUTE AUTO 4.81 K/mm3 (1.96-9.15); NEUTROPHILS PERCENT AUTO 50 % (41-73); Platelet Count 201 K/mm3 (150-400); RDW Coefficient Variation 13.4 % (11.7-14.2); Red Blood Cell Count 3.16 M/mm3 (3.80-5.20)
--- NOTE | 2021-10-19 05:32 | NUR ---
SHIFT SUMMARY PATIENT ALERT AND ORIENTED X 2-3. FORGETFUL. HAD NO COMPLAINTS OF PAIN OR SHORTNESS OF BREATH. NO ACUTE ISSUES NOTED. BED IN LOWEST POSITION WITH WHEELS LOCKED AND ALARM ON. CALL LIGHT WITHIN REACH. REPORT GIVEN TO ONCOMING RN.
[2021-10-19 05:58] LABS: Bun/Creatinine Ratio 39.2 (12.0-20.0); Calcium, Blood 9.5 mg/dL (8.5-10.1); Creatinine, Blood 1.48 mg/dL (0.40-1.00); Potassium, Blood 4.4 mmol/L (3.5-5.5)
--- NOTE | 2021-10-19 08:00 | NUR ---
pt laying in bed watching tv, and sleeping off and on, answers questons approp. lungs are clear in upper gale, wheezing in bases, sats 88% on r/a, states she feels sob, placed her back on 2 liters 02 via n/c, resp even and unlabored, occ nonproductive cough noted, hrr, tele in place running sr with a bbb in the 70's, no edema noted, ppp+1, cap refill< 3sec, vs stable, afebrile, iv site to lfA S.L. site is clear and patent, btx4, abd flat soft nontender, incont of urine, attends in place, skin has some bruising, no open areas, daitya, was reported she can ambulate with one person assist and a walker, dilcia, call light in reach.
--- NOTE | 2021-10-19 18:37 | NUR ---
Pt sleeps when left undisturbed, has been cooperative with care, no acute changes or needs, Dr. Brumfield in to see pt, he said she will likely go home tomorrow, call light in reach.
--- NOTE | 2021-10-20 05:53 | NUR ---
SHIFT SUMMARY PATIENT ALERT AND ORIENTED X2. HAD NO COMPLAINTS OF PAIN OR SHORTNESS OF BREATH. NO ACUTE ISSUES NOTED OVERNIGHT. BED IN LOWEST POSITION WITH WHEELS LOCKED AND ALARM ON. CALL LIGHT WITHIN REACH. REPORT GIVEN TO ONCOMING RN.
--- NOTE | 2021-10-20 07:29 | NUR ---
ASSUMED CARE OF PT- PT IN BED ALERT AND ORIENTED X 3-4. MILD COGNITIVE OFFSET NOTED. PT HAS RIGHT EYE BLINDNESS (PT STATED) PUPIL RESPONSE IN THAT EYE NOT NOTED. RIGHT ANKLE HAS A REDUCED ROM R/T PRIOR SURGERY (PT STATED). LING HAVE SOME WHEEZES IN THE BASES BUT NO S&S OF DISTRESS NOTED AT THIS TIME. WILL CTM. BEDSIDE REPORT COMPLETED WITH NIGHT RN, PT DENIES PAIN OR DISCOMFORT AT THIS TIME. PLAN IS FOR POSSIBLE DISCHARGE BACK TO [facility] WHERE THE PT LIVES.
[2021-10-20] MEDS ORDERED: INSULANPEN SC (10:16)
[2021-10-20] MEDS ORDERED: PRED20 PO (10:17)
--- NOTE | 2021-10-20 10:17 | NUR ---
RECIEVED A CALL FROM [facility] GUEVARA SANZ- DR NEELY PLPARCENIO TO DC THE PT BACK TO THE FACILITY TODAY. FAXED FACILITY PAPERWORK (REVIEWED AND SIGNED BY DR NEELY) BACK TO THE FACILITY PER REQUEST. SPOKE TO GUEVARA BOOTHE IN CARE MANAGEMENT, SHE WILL FAX OFFICIAL DISCHARGE ORDERS WELL MOST RECENT H&P AND LABS, PER THE REQUEST OF GUEVARA SANZ. PT TO BE TAKEN BY W/C TRANSPORT AWAITING A TIME FOR TRANSPORT WILL CALL THE FACILITY WHEN WE HAVE A TRANSPORT TIME.
--- NOTE | 2021-10-20 10:52 | NUR ---
DISCHARGE NOTE- PT WAS GIVEN VERBAL AND WRITTEN DISCHARGE INSTRUCTIONS AND ACKNOWLEDGED UNDERSTANDING OF THEM. IV DC'D PRIOR TO DISCHARGE. PT DID NOT HAVE HER OWN CLOTHES SO WAS PLACED IN A SET OF SCRUBS FOR THE TRIP HOME. HOME O2 EVAL WAS COMPLETED. ZACHARY SANZ NOTIFIED OF TRANSPORT TIME. PT TAKEN VIA WC TRANSPORT BACK TO [facility]. NO S&S OF DISTRESS AT THE TIME OF DISCHARGE.
== END 2021-10-20 10:45 | disposition home or self-care (01) | DRG 189 ==
LOC: ER 23:35 → MEDS 10-16 04:10 → ERHOLD 10-16 04:10 → MEDS 10-16 14:25
PROVIDERS: Internal Medicine; Student in an Organized Health Care Education/Training Program; ADMIT Internal Medicine
DX: J96.21 Acute and chronic respiratory failure with hypoxia (principal); G93.41 Metabolic encephalopathy; N18.4 Chronic kidney disease, stage 4 (severe); J44.1 Chronic obstructive pulmonary disease with (acute) exacerbation; N17.9 Acute kidney failure, unspecified; I13.0 Hypertensive heart and chronic kidney disease with heart failure and stage 1 through stage 4 chronic kidney disease, or unspecified chronic kidney disease; I50.42 Chronic combined systolic (congestive) and diastolic (congestive) heart failure; J44.0 Chronic obstructive pulmonary disease with (acute) lower respiratory infection; Z68.41 Body mass index [BMI] 40.0-44.9, adult; N39.0 Urinary tract infection, site not specified; Z20.822 Contact with and (suspected) exposure to COVID-19; J20.8 Acute bronchitis due to other specified organisms; J96.22 Acute and chronic respiratory failure with hypercapnia; I25.10 Atherosclerotic heart disease of native coronary artery without angina pectoris; E78.5 Hyperlipidemia, unspecified; I12.9 Hypertensive chronic kidney disease with stage 1 through stage 4 chronic kidney disease, or unspecified chronic kidney disease; K21.9 Gastro-esophageal reflux disease without esophagitis; E66.01 Morbid (severe) obesity due to excess calories; G47.00 Insomnia, unspecified; G47.33 Obstructive sleep apnea (adult) (pediatric); Z23 Encounter for immunization; E03.9 Hypothyroidism, unspecified; K59.09 Other constipation; E11.22 Type 2 diabetes mellitus with diabetic chronic kidney disease; I25.2 Old myocardial infarction; F17.210 Nicotine dependence, cigarettes, uncomplicated; F03.90 Unspecified dementia, unspecified severity, without behavioral disturbance, psychotic disturbance, mood disturbance, and anxiety; F43.10 Post-traumatic stress disorder, unspecified; G40.909 Epilepsy, unspecified, not intractable, without status epilepticus; F31.9 Bipolar disorder, unspecified; Z88.5 Allergy status to narcotic agent; Z88.8 Allergy status to other drugs, medicaments and biological substances; Z91.048 Other nonmedicinal substance allergy status; Z79.82 Long term (current) use of aspirin; Z79.899 Other long term (current) drug therapy; Z95.5 Presence of coronary angioplasty implant and graft; Z90.89 Acquired absence of other organs
CPT/HCPCS: 0241U; 36415; 70450; 71045; 72125; 80048; 80069; 81001; 82550; 82803; 82947; 83036; 83735; 83880; 84145; 84439; 84443; 84481; 85025; 87077; 87086; 87186; 90686; 93005; 93010; 94640; 94760; 94761; 96365; 97110; 97162; 99285-25; A9270; G0008; J0696; J1644; J1815; J1940; J2405; J2930; J7050; J7120; J7512

== ENCOUNTER 2021-10-24 00:14 | Emergency (ER) | payer MEDICARE, OTHER ==
[~2021-10-24] VITALS: Ht 162.6 cm; Wt 98.0 kg
[~2021-10-24 00:14] MED LIST changes: +ALEVAZOL56.7 G1 TOP; +ALMACONE SUSPE355 ML PO; +CARB10OTL BOTHEARS; +LOPERAMIDE2 M8 PO; +MIRALAX17 GM PO; +SENN187 PO; +Vitamin B Comple1 EA PO; +Vitamin B-121000 MCG SL
[2021-10-24 02:01] LABS: Hematocrit 32.1 % (33.0-51.0); Hemoglobin 10.6 g/dL (11.5-16.0); Mean Corpuscular HGB 33.3 pg (26.0-34.0); Mean Corpuscular Volume 101 fL (80-100); Mean Platelet Volume 9.9 fL (9.1-12.4); NRBC ABSOLUTE 0.04 K/mm3 (0.00-0.02); NRBC Auto 0.3 /100 WBC (0.0-0.2); Platelet Count 246 K/mm3 (150-400); RDW Coefficient Variation 13.7 % (11.7-14.2); RDW Standard Deviation 50.8 fL (35.1-46.3); Red Blood Cell Count 3.18 M/mm3 (3.80-5.20); White Blood Cell Count 13.23 K/mm3 (4.00-11.30)
[2021-10-24 02:21] LABS: Anion Gap 8 mmol/L (6-16); Blood Urea Nitrogen 63 mg/dL (8-24); Bun/Creatinine Ratio 36.6 (12.0-20.0); CO2, Blood 28 mmol/L (21-32); Calcium, Blood 8.9 mg/dL (8.5-10.1); Chloride, Blood 102 mmol/L (98-108); Creatinine, Blood 1.72 mg/dL (0.40-1.00); Glomerular Filtration Rate 31 (60-); Glucose, Blood 277 mg/dL (70-99); Potassium, Blood 4.2 mmol/L (3.5-5.5); Sodium, Blood 138 mmol/L (136-145); Troponin I <0.015 ng/mL (0.000-0.040)
[2021-10-24 02:27] LABS: BAND PERCENT MAN 7 % (0-8); BASOPHILS PERCENT MAN 0 % (0-2); EOSINOPHILS PERCENT MAN 0 % (0-6); LYMPHOCYTES ABSOLUTE MAN 4.49 K/mm3 (0.84-5.20); LYMPHOCYTES PERCENT MAN 34 % (21-46); MONOCYTES ABSOLUTE MAN 0.66 K/mm3 (0.16-1.47); MONOCYTES PERCENT MAN 5 % (4-13); MYELOCYTE ABSOLUTE MAN 0.39 K/mm3 (0.00-0.00); MYELOCYTE PERCENT MAN 3 % (0-0); NEUTROPHILS ABSOLUTE MAN 7.67 K/mm3 (1.96-9.15); SEG NEUTROPHILS PERCENT MAN 51 % (41-73); TOTAL CELLS COUNTED 100
== END 2021-10-24 06:33 | disposition home or self-care (01) ==
LOC: ER 00:14
PROVIDERS: Student in an Organized Health Care Education/Training Program
DX: J44.1 Chronic obstructive pulmonary disease with (acute) exacerbation (principal); Z88.8 Allergy status to other drugs, medicaments and biological substances; Z88.5 Allergy status to narcotic agent; Z91.048 Other nonmedicinal substance allergy status; Z79.899 Other long term (current) drug therapy; Z79.82 Long term (current) use of aspirin; Z79.4 Long term (current) use of insulin; F17.210 Nicotine dependence, cigarettes, uncomplicated; I13.0 Hypertensive heart and chronic kidney disease with heart failure and stage 1 through stage 4 chronic kidney disease, or unspecified chronic kidney disease; I50.9 Heart failure, unspecified; I25.2 Old myocardial infarction; N18.5 Chronic kidney disease, stage 5; E11.22 Type 2 diabetes mellitus with diabetic chronic kidney disease; E03.9 Hypothyroidism, unspecified; E78.5 Hyperlipidemia, unspecified; K21.9 Gastro-esophageal reflux disease without esophagitis; G40.909 Epilepsy, unspecified, not intractable, without status epilepticus; G47.00 Insomnia, unspecified
CPT/HCPCS: 71046; 80048; 84484; 85025; 94644; 94645; 96365; 99285-25; J3475

== ENCOUNTER 2021-10-27 13:30 | Inpatient (IN) | payer MEDICARE, OTHER ==
[~2021-10-27] VITALS: Ht 162.6 cm; Wt 98.9 kg
[2021-10-27] MEDS ORDERED: INSULANI SC (13:51)
[2021-10-27] MEDS ORDERED: METR500 PO (13:54)
[2021-10-27] MEDS ORDERED: NEOM500 PO (13:55)
[2021-10-27] MEDS ORDERED: ACET325 PO (13:58)
[2021-10-27 14:18] LABS: BASOPHILS ABSOLUTE AUTO 0.02 K/mm3 (0.00-0.23); BASOPHILS PERCENT AUTO 0 % (0-2); EOSINOPHILS PERCENT AUTO 0 % (0-6); Hematocrit 32.4 % (33.0-51.0); Hemoglobin 10.4 g/dL (11.5-16.0); IMMATURE GRAN PERCENT AUTO 1 % (0-1); LYMPHOCYTES ABSOLUTE AUTO 1.29 K/mm3 (0.84-5.20); LYMPHOCYTES PERCENT AUTO 9 % (21-46); MONOCYTES PERCENT AUTO 3 % (4-13); Mean Corpuscular HGB 33.3 pg (26.0-34.0); Mean Corpuscular HGB Conc 32.1 g/dL (31.5-36.5); Mean Corpuscular Volume 104 fL (80-100); Mean Platelet Volume 9.9 fL (9.1-12.4); NEUTROPHILS ABSOLUTE AUTO 11.85 K/mm3 (1.96-9.15); NEUTROPHILS PERCENT AUTO 87 % (41-73); Platelet Count 169 K/mm3 (150-400); RDW Coefficient Variation 14.2 % (11.7-14.2); RDW Standard Deviation 54.6 fL (35.1-46.3); Red Blood Cell Count 3.12 M/mm3 (3.80-5.20); White Blood Cell Count 13.66 K/mm3 (4.00-11.30)
[2021-10-27 14:43] LABS: Albumin, Blood 2.4 g/dL (3.4-5.0); Albumin/Globulin Ratio 0.8 (0.8-1.8); Bilirubin, Total 0.4 mg/dL (0.1-1.0); Bun/Creatinine Ratio 23.9 (12.0-20.0); Calcium, Blood 8.5 mg/dL (8.5-10.1); Creatinine, Blood 1.42 mg/dL (0.40-1.00); Globulin, Blood 3.2 g/dL (2.2-4.0); Total Protein, Blood 5.6 g/dL (6.4-8.2)
[2021-10-27 15:00] LABS: Source, Urine Catheter
[2021-10-27 15:29] LABS: Appearance, Urine Clear (Clear); Bilirubin, Urine Neg (Neg); Blood, Urine Neg (Neg); Glucose Qualitative, Urine 3+ (Neg); Ketones, Urine Neg (Neg); Leukocyte Esterase, Urine Neg (Neg); Nitrite, Urine Neg (Neg); Protein, Urine 2+ (Neg); Specific Gravity, Urine 1.015 (1.003-1.022); Urobilinogen, Urine NORM (Normal)
[2021-10-27 15:55] LABS: Color, Urine Pale Yellow (P-Yellow)
[2021-10-27 16:01] LABS: Bacteria Few /hpf; Red Blood Cells, Urine 0-2 /hpf (0-2); Squamous Epithelial Cells Mod /hpf (Few); Transitional Epithelial Cells Rare /hpf (0-Rare); White Blood Cells, Urine 0-2 /hpf (0-5)
[2021-10-27 16:23] LABS: Influenza A, PCR NEGATIVE (NEGATIVE); Influenza B, PCR NEGATIVE (NEGATIVE); Resp Syncytial Virus, PCR NEGATIVE (NEGATIVE); SARS-Cov-2 (COVID-19) PCR, MMC NEGATIVE (NEGATIVE)
--- NOTE | 2021-10-27 21:46 | NUR ---
CONFUSION TOMASA SUICIDE RISK SCREENING
[2021-10-28 04:54] LABS: BASOPHILS ABSOLUTE AUTO 0.02 K/mm3 (0.00-0.23); BASOPHILS PERCENT AUTO 0 % (0-2); EOSINOPHILS PERCENT AUTO 0 % (0-6); Hematocrit 31.4 % (33.0-51.0); Hemoglobin 10.5 g/dL (11.5-16.0); IMMATURE GRAN ABSOLUTE AUTO 0.08 K/mm3 (0.00-0.10); IMMATURE GRAN PERCENT AUTO 1 % (0-1); LYMPHOCYTES ABSOLUTE AUTO 1.12 K/mm3 (0.84-5.20); LYMPHOCYTES PERCENT AUTO 13 % (21-46); MONOCYTES ABSOLUTE AUTO 0.18 K/mm3 (0.16-1.47); MONOCYTES PERCENT AUTO 2 % (4-13); Mean Corpuscular HGB 33.8 pg (26.0-34.0); Mean Corpuscular HGB Conc 33.4 g/dL (31.5-36.5); Mean Corpuscular Volume 101 fL (80-100); Mean Platelet Volume 10.1 fL (9.1-12.4); NEUTROPHILS ABSOLUTE AUTO 7.23 K/mm3 (1.96-9.15); NEUTROPHILS PERCENT AUTO 84 % (41-73); Platelet Count 169 K/mm3 (150-400); RDW Coefficient Variation 13.7 % (11.7-14.2); RDW Standard Deviation 50.7 fL (35.1-46.3); Red Blood Cell Count 3.11 M/mm3 (3.80-5.20); White Blood Cell Count 8.63 K/mm3 (4.00-11.30)
--- NOTE | 2021-10-28 05:14 | NUR ---
ALFRED GOT TO THE MEDICAL FLOOR. SHE WAS CONFUSED AT FIRST, DID NOT REMEMBER HER AGE BUT REMEMBERED HER BIRTHDAY. HER LEVEL OF CONFUSION SEEMED TO DECREASE FOR THE NEXT COUPLE HOURS SHE ASKED TO SPEAK TO HER FRIEND AND HER BROTHER. SHE WROTE HER FRIEND'S NUMBER ON A PIECE OF PAPER BUT THE NUMBER WAS NOT CORRECT WHEN I DIALED IT. SHE ASKED TO GO TO THE BATHROOM, SHE WAS ABLE TO STAND AND PIVOTED TO THE BEDSIDE COMMODE. SHE SWALLOWED ALL OF HERS PILLS, FELL ASLEEP ABOUT ONE HOUR LATER.
[2021-10-28 05:53] LABS: Bun/Creatinine Ratio 24.3 (12.0-20.0); Calcium, Blood 8.7 mg/dL (8.5-10.1); Creatinine, Blood 1.44 mg/dL (0.40-1.00); Potassium, Blood 4.4 mmol/L (3.5-5.5)
--- NOTE | 2021-10-28 16:13 | NUR ---
56 year old female admitted to the hospital for Acute on Chronic Repiratory Failure with Hypoxia. Pt's medical history and comorbidities include: Vascular Dementia, COPD, Diastolic CHF, [place], CKD4, DM2, HTN, Hypothyroidism, Hyperlipidemia, Asthma, Bipolar Disorder, GERD, Epilipsy, Insomnia, Depression, PTSD, TIFFANIE, and Cardiac Stent Placment. Pt has multiple hospital visits this year. Pt resting in bed with her eyes closed. Pt wakes to gentle verbal stimuli. Pt is A&OX2. Pt denies pain at this time. Mild dyspnea noted when she speaks. Pt appears tired and this RN ended visit to allow Pt to rest. Spoke with Primary RN Zoila and discussed case. Zoila reports speaking with Pt's brother Kaden. Kaden reports being Pt's legal guardian. Kaden reported concerns he has with Pt's friend Nneka. Pt has in her EMR showing Kaden as Temporary Legal Guardian. Called and spoke with Pt's brother Kaden. Kaden reports obtaining perminent legal guardian ship and will have his fax or email Palliative Care with documents. Provided update and reviewed plan of care with Kaden. Gentle advanced care planning including trajectory of Pt's multiple chronic illnesses. Discussed the importance of routine conversations with Pt's PCP and planning for the future. Kaden expresses appreciation and reports no other concerns at this time. Spoke with Dr Collins and discussed case. Will deliver documents of guardianship to medical records once received. Palliative Care will remain available.
--- NOTE | 2021-10-28 17:47 | NUR ---
SHIFT SUMMARY PATIENT DENIES PAIN, NAUSEA, AND SHORTNESS OF BREATH. PATIENT ON 1L VIA N/C. MAINTAINING SATS AT 93%. TRIED TO TITRATE TO ROOM AIR, BUT PATIENT SATURATIONS DROPPED TO 88%. PATIENT IS A SBA TO THE BSC. PATIENT IS A&O X2 AND THIS IS HER BASELINE ACCORDING TO BROTHER. BROTHERTOVA IS POA AND GUARDIAN. SPEECH EVAL DETERMINED PATIENT COULD BE ON A SOFT DIET WITH MEDICATIONS ONE AT A TIME WITH WATER. PATIENT IS EATING AND DRINKING WELL. PATIENT IS PLEASANT AND COOPERATIVE WITH CARE.
[2021-10-29 04:46] LABS: BASOPHILS ABSOLUTE AUTO 0.02 K/mm3 (0.00-0.23); BASOPHILS PERCENT AUTO 0 % (0-2); EOSINOPHILS ABSOLUTE AUTO 0.06 K/mm3 (0.00-0.68); EOSINOPHILS PERCENT AUTO 1 % (0-6); Hematocrit 33.7 % (33.0-51.0); Hemoglobin 10.9 g/dL (11.5-16.0); IMMATURE GRAN ABSOLUTE AUTO 0.06 K/mm3 (0.00-0.10); IMMATURE GRAN PERCENT AUTO 1 % (0-1); LYMPHOCYTES PERCENT AUTO 36 % (21-46); MONOCYTES ABSOLUTE AUTO 0.71 K/mm3 (0.16-1.47); MONOCYTES PERCENT AUTO 6 % (4-13); Mean Corpuscular HGB 33.1 pg (26.0-34.0); Mean Corpuscular HGB Conc 32.3 g/dL (31.5-36.5); Mean Corpuscular Volume 102 fL (80-100); Mean Platelet Volume 9.9 fL (9.1-12.4); NEUTROPHILS ABSOLUTE AUTO 6.46 K/mm3 (1.96-9.15); NEUTROPHILS PERCENT AUTO 57 % (41-73); Platelet Count 163 K/mm3 (150-400); RDW Coefficient Variation 13.8 % (11.7-14.2); RDW Standard Deviation 51.9 fL (35.1-46.3); Red Blood Cell Count 3.29 M/mm3 (3.80-5.20); White Blood Cell Count 11.41 K/mm3 (4.00-11.30)
--- NOTE | 2021-10-29 04:46 | NUR ---
ALFRED'S VITALS AND GLUCOSE LEVEL WERE WNL. SHE DID NOT SLEEP THE WHOLE NIGHT (POSSIBLE INSOMNIA ISSUE). KEEP MONITORING
[2021-10-29 05:23] LABS: Bun/Creatinine Ratio 24.3 (12.0-20.0); Calcium, Blood 9.1 mg/dL (8.5-10.1); Creatinine, Blood 1.69 mg/dL (0.40-1.00); Potassium, Blood 4.6 mmol/L (3.5-5.5)
[2021-10-29] MEDS ORDERED: LEVOFLOXACIN250 M2 PO (13:03)
[2021-10-29] MEDS ORDERED: LACT PO (13:03)
--- NOTE | 2021-10-29 18:24 | NUR ---
SHIFT SUMMARY PATIENT DENIES PAIN, NAUSEA, AND SHORTNESS OF BREATH. PATIENT IS A SBA TO THE BATHROOM. PATIENT IS ON ROOM AIR AND SATURATING AT 93-94%. PATIENT HAD A HOME O2 EVAL DONE TODAY, RT DETERMINED THAT SHE DID NOT NEED OXYGEN AT HOME. PATIENT IS A&O X2. THIS IS HER BASELINE. PATIENT HAS DISCHARGE ORDERS, HOWEVER, ZACHARY WAS UNABLE TO ADMIT PATIENT ON THE WEEKEND. PROBABLE DISCHARGE TOMORROW. PATIENT IS EATING AND DRINKING WELL. PATIENT IS PLEASANTLY CONFUSED.
--- NOTE | 2021-10-30 03:26 | NUR ---
SHIFT SUMMARY ALFRED ADMITTED FOR ACUTE RESPIRATORY FAILURE/PNA. HX OF DEMENTIA, EPILEPSY, BIPOLAR, DM TYPE 2, HTN, COPD. ALFRED IS A&O X2, ORIENTED TO PERSON AND SOMETIMES THE SITUATION. SHE IS ABLE TO STATE HER BIRTHDAY, BUT CANNOT RECALL HER AGE. ROOM AIR, SATING 94-95% LUNG SOUNDS CLEAR. OCCASSIONAL PRODUCTIVE COUGH. IV ACCESS TO LEFT ARM. MONITORED BY TELEMETRY, SR 85 WITH BBB. AMBULATES WITH FWW, AND SBA FOR SAFETY. PT HAS HIGH FALL RISK. PLAN IS TO D/C TOMORROW TO HER [facility] FACILITY [facility] IN [place].
--- NOTE | 2021-10-30 10:59 | NUR ---
DISCHARGE PATIENT TRANSPORTED VIA WHEELCHAIR TO AMBULANCE. PATIENT DISCHARGED HOME TO [facility]. DISCHARGE PACKET SENT WITH COLLECT ON DELIVERY CLERK. BELONGINGS SENT WITH PATIENT. IV REMOVED WITHOUT DIFFICULTY. TELE REMOVED WITHOUT DIFFICULTY. MEDICATIONS FAXED TO FACILITY. REPORT GIVEN TO YVON.
== END 2021-10-30 10:56 | disposition home or self-care (01) | DRG 193 ==
LOC: ER 13:30 → MEDS 20:28
PROVIDERS: Emergency Medicine; Student in an Organized Health Care Education/Training Program; ADMIT Internal Medicine
DX: J18.9 Pneumonia, unspecified organism (principal); J96.01 Acute respiratory failure with hypoxia; I13.0 Hypertensive heart and chronic kidney disease with heart failure and stage 1 through stage 4 chronic kidney disease, or unspecified chronic kidney disease; J44.0 Chronic obstructive pulmonary disease with (acute) lower respiratory infection; I50.32 Chronic diastolic (congestive) heart failure; Z20.822 Contact with and (suspected) exposure to COVID-19; E11.22 Type 2 diabetes mellitus with diabetic chronic kidney disease; E78.5 Hyperlipidemia, unspecified; I25.10 Atherosclerotic heart disease of native coronary artery without angina pectoris; E03.9 Hypothyroidism, unspecified; K21.9 Gastro-esophageal reflux disease without esophagitis; F31.9 Bipolar disorder, unspecified; G40.909 Epilepsy, unspecified, not intractable, without status epilepticus; N18.30 Chronic kidney disease, stage 3 unspecified; I25.2 Old myocardial infarction; F01.50 Vascular dementia, unspecified severity, without behavioral disturbance, psychotic disturbance, mood disturbance, and anxiety; G47.33 Obstructive sleep apnea (adult) (pediatric); G47.00 Insomnia, unspecified; F43.10 Post-traumatic stress disorder, unspecified; F17.210 Nicotine dependence, cigarettes, uncomplicated; Z88.5 Allergy status to narcotic agent; Z88.8 Allergy status to other drugs, medicaments and biological substances; Z91.09 Other allergy status, other than to drugs and biological substances; Z79.82 Long term (current) use of aspirin; Z79.899 Other long term (current) drug therapy; Z79.4 Long term (current) use of insulin; Z90.89 Acquired absence of other organs; Z95.5 Presence of coronary angioplasty implant and graft; Z86.73 Personal history of transient ischemic attack (TIA), and cerebral infarction without residual deficits
CPT/HCPCS: 0241U; 36415; 51701; 71045; 80048; 80053; 81001; 82947; 83880; 84484; 85025; 92610; 93005; 93010; 94640; 94664; 94760; 94761; 96365; 96372; 96375; 99285-25; A9270; C9113; J1650; J1815; J1956; J2930; J7512

== ENCOUNTER → 2021-11-06 | Outpatient (CLI) | payer MEDICARE, OTHER ==
[~2021-11-06] MED LIST changes: +INSULANI SC; +LACT PO; +LEVOFLOXACIN250 M2 PO; +METR500 PO; +NEOM500 PO
[2021-11-06 20:09] LABS: Creatinine, Urine Random 17.1 mg/dL (27.00-270.00); Protein, Urine Random 11.5 mg/dL (0.0-11.9); Protein/Creat Ratio, Ur Random 0.7
== END | disposition home or self-care (01) ==
LOC: LAB 19:19 → LAB SHORT 19:19
PROVIDERS: Internal Medicine Nephrology
DX: N18.32 Chronic kidney disease, stage 3b (principal); E55.9 Vitamin D deficiency, unspecified
CPT/HCPCS: 82570; 84156

== ENCOUNTER 2021-12-25 10:25 | Day surgery (SDC) | payer MEDICARE, OTHER ==
[~2021-12-25] VITALS: Ht 162.6 cm; Wt 94.8 kg
[~2021-12-25 10:25] MED LIST changes: +ALUMINUM H320 MG/5 M PO; +ISOSORBIDE MONO30 MG PO; +LOPE2C PO; +Rena-Vite Tabl0.8 MG PO; +SENNA LAXATIVE8.6 MG PO
--- NOTE | 2021-12-25 12:08 | NUR ---
PT BEEN IN SDS. Patient confirms NPO status and agrees with scheduled surgery. Patient states colon prep results clear. History, Chart, Medications and Allergies reviewed before start of procedure.Lungs clear T/O to Auscultation. Pre-Op teaching done. Pt verbalizes understanding. Patient States Post-Procedure ride home has been arranged.
--- NOTE | 2021-12-25 12:10 | NUR ---
PT DIFFICULT IV START, MULT RN'S TO ASSIST WITH IV. DISCUSSED WITH DR AND ANESTHESIA.
--- NOTE | 2021-12-25 12:15 | NUR ---
IV OBTAINED BY OTHER RN, ITZ AFTER MULTIPLE ATTEMPTS. ANESTHESIA BEEN HERE, DISCUSSED PT'S CBG WITH ANESTHESIA WHO REPORTS WILL GIVE D50 IN IV BAG IN ENDO ROOM.
--- NOTE | 2021-12-25 12:27 | NUR ---
12/25/[address] PROVIDING ANESTHESIA CARE.
--- NOTE | 2021-12-25 13:55 | NUR ---
PT TOLERATING FLUIDS PO. RIDE INFORMED OF STATUS. NC DISCONTINUED. PT O2 SAT AT 94%
--- NOTE | 2021-12-25 14:09 | NUR ---
Discharge instructions reviewed with patient. Patient verbalizes understanding. Copy given to patient to take home. Discharged via wheelchair to private car for ride home.
== END 2021-12-25 14:44 | disposition home or self-care (01) ==
LOC: ORSCMMR 10:25 → ORD 12:00 → ORSCMMR 12:00
PROVIDERS: Surgery
PROC: 0DBM8ZX Excision of Descending Colon, Via Natural or Artificial Opening Endoscopic, Diagnostic (ICD-10-PCS; principal; 2021-12-25 12:00)
PROC: 0DBC8ZX Excision of Ileocecal Valve, Via Natural or Artificial Opening Endoscopic, Diagnostic (ICD-10-PCS; principal; 2021-12-25 12:00)
DX: Z86.010 Personal history of colon polyps (principal); D12.4 Benign neoplasm of descending colon; D12.0 Benign neoplasm of cecum; F17.210 Nicotine dependence, cigarettes, uncomplicated; J44.9 Chronic obstructive pulmonary disease, unspecified; E11.9 Type 2 diabetes mellitus without complications; E78.5 Hyperlipidemia, unspecified; I10 Essential (primary) hypertension; G47.33 Obstructive sleep apnea (adult) (pediatric); Z79.899 Other long term (current) drug therapy; E66.9 Obesity, unspecified; Z68.35 Body mass index [BMI] 35.0-35.9, adult; N18.30 Chronic kidney disease, stage 3 unspecified; I25.2 Old myocardial infarction
CPT/HCPCS: 82947; 88305; J2704; J7120

== ENCOUNTER → 2022-04-08 | Outpatient (CLI) | payer MEDICARE, OTHER ==
[2022-04-09 12:42] LABS: Source, Urine Clean Catch
[2022-04-09 13:22] LABS: Appearance, Urine Clear (Clear); Bilirubin, Urine Neg (Neg); Blood, Urine 3+ (Neg); Color, Urine Yellow (P-Yellow); Glucose Qualitative, Urine 2+ (Neg); Ketones, Urine Neg (Neg); Leukocyte Esterase, Urine Neg (Neg); Nitrite, Urine Neg (Neg); Protein, Urine 3+ (Neg); Urobilinogen, Urine NORM (Normal); pH, Urine 6.5 (5.0-8.0)
[2022-04-09 14:07] LABS: Bacteria Few /hpf; Squamous Epithelial Cells Few /hpf (Few); White Blood Cells, Urine 0-2 /hpf (0-5)
== END | disposition home or self-care (01) ==
LOC: LAB SHORT 03:30 → LAB 03:30
PROVIDERS: Nurse Practitioner Family
DX: N39.0 Urinary tract infection, site not specified (principal)
CPT/HCPCS: 81001

== ENCOUNTER → 2022-07-25 | Outpatient (CLI) | payer MEDICARE, OTHER | END | disposition home or self-care (01) | LOC: LAB SHORT 09:40 | DX: E11.22 Type 2 diabetes mellitus with diabetic chronic kidney disease (principal); I12.9 Hypertensive chronic kidney disease with stage 1 through stage 4 chronic kidney disease, or unspecified chronic kidney disease; N18.30 Chronic kidney disease, stage 3 unspecified | CPT/HCPCS: 82043 ==

== ENCOUNTER → 2022-08-02 | Outpatient (CLI) | payer MEDICARE, OTHER ==
[2022-08-02 18:42] LABS: Source, Urine Clean Catch
[2022-08-02 19:23] LABS: Appearance, Urine Clear (Clear); Bilirubin, Urine Neg (Neg); Blood, Urine 1+ (Neg); Color, Urine Yellow (P-Yellow); Glucose Qualitative, Urine 4+ (Neg); Ketones, Urine Neg (Neg); Leukocyte Esterase, Urine Neg (Neg); Nitrite, Urine Neg (Neg); Protein, Urine 3+ (Neg); Urobilinogen, Urine NORM (Normal); pH, Urine 6.5 (5.0-8.0)
[2022-08-02 19:34] LABS: Squamous Epithelial Cells Mod /hpf (Few); White Blood Cells, Urine 0-2 /hpf (0-5)
[2022-08-02 19:35] LABS: Bacteria Few /hpf; Transitional Epithelial Cells Rare /hpf (0-Rare)
== END | disposition home or self-care (01) ==
LOC: LAB SHORT 11:33 → LAB 11:33
PROVIDERS: Nurse Practitioner Family
DX: N39.0 Urinary tract infection, site not specified (principal)
CPT/HCPCS: 81001

== ENCOUNTER → 2022-10-08 | Outpatient (CLI) | payer MEDICARE, OTHER ==
[2022-10-16 09:47] LABS: Stool Occult Bld Immuno 1 Negative (NEGATIVE)
== END ==
LOC: LAB SHORT 08:45 → LAB 08:45
PROVIDERS: Nurse Practitioner Family
DX: Z12.11 Encounter for screening for malignant neoplasm of colon (principal)
CPT/HCPCS: G0328

== ENCOUNTER 2022-11-29 23:23 | Emergency (ER) | payer MEDICARE, OTHER ==
[~2022-11-29] VITALS: Ht 162.6 cm; Wt 113.4 kg
[2022-11-30] MEDS ORDERED: LIDO700A20 TOP (03:39)
[2022-11-30] MEDS ORDERED: Acetaminophen500 MG PO (03:39)
[2022-11-30] MEDS ORDERED: PRED20 PO (03:39)
[2022-11-30 04:07] LABS: Influenza A, PCR NEGATIVE (NEGATIVE); Influenza B, PCR NEGATIVE (NEGATIVE); Resp Syncytial Virus, PCR NEGATIVE (NEGATIVE); SARS-Cov-2 (COVID-19) PCR, MMC NEGATIVE (NEGATIVE)
== END 2022-11-30 04:31 | disposition home or self-care (01) ==
LOC: ER 23:23
PROVIDERS: Student in an Organized Health Care Education/Training Program
DX: J44.1 Chronic obstructive pulmonary disease with (acute) exacerbation (principal); R09.1 Pleurisy; J18.9 Pneumonia, unspecified organism; I13.0 Hypertensive heart and chronic kidney disease with heart failure and stage 1 through stage 4 chronic kidney disease, or unspecified chronic kidney disease; I50.9 Heart failure, unspecified; N18.9 Chronic kidney disease, unspecified; E11.22 Type 2 diabetes mellitus with diabetic chronic kidney disease; I25.2 Old myocardial infarction; F03.90 Unspecified dementia, unspecified severity, without behavioral disturbance, psychotic disturbance, mood disturbance, and anxiety; E03.9 Hypothyroidism, unspecified; K21.9 Gastro-esophageal reflux disease without esophagitis; F17.210 Nicotine dependence, cigarettes, uncomplicated; Z88.5 Allergy status to narcotic agent; Z91.018 Allergy to other foods; Z91.09 Other allergy status, other than to drugs and biological substances; Z79.82 Long term (current) use of aspirin; Z79.890 Hormone replacement therapy; Z79.899 Other long term (current) drug therapy; Z79.4 Long term (current) use of insulin; Z95.5 Presence of coronary angioplasty implant and graft; Z20.822 Contact with and (suspected) exposure to COVID-19
CPT/HCPCS: 0241U; 71045; 93005; 93010; 94640; 94664; A9270; J1885; J7512

== ENCOUNTER 2022-12-14 06:27 | Day surgery (SDC) | payer MEDICARE, OTHER ==
[~2022-12-14] VITALS: Ht 162.6 cm; Wt 99.0 kg
[~2022-12-14 06:27] MED LIST changes: +Acetaminophen500 MG PO; +GOLD BOND MEDI TD; +Golytely Solu4000 ML PO; +LIDO700A20 TOP; +TRELEGY ELLIPT1 EACH; +[UNRECOGNIZED DRUG - OTHER] PO
[2022-12-14] MEDS ORDERED: PRAZ2 PO (07:21)
--- NOTE | 2022-12-14 08:05 | NUR ---
12/14/22 0805 Jessica Machuca MONITOR INTACT WITH CONTINUOUS PULSE OXIMETRY AND INTERMITTENT BP.
--- NOTE | 2022-12-14 09:08 | NUR ---
Discharge instructions reviewed with patient. Patient verbalizes understanding. Copy given to patient to take home. Discharged via wheelchair to private car for ride home.
== END 2022-12-14 09:21 | disposition home or self-care (01) ==
LOC: ORSCMMR 06:27 → ORD 08:00 → ORSCSDS 08:00 → ORSCMMR 08:00
PROVIDERS: Surgery
PROC: 0DBL8ZX Excision of Transverse Colon, Via Natural or Artificial Opening Endoscopic, Diagnostic (ICD-10-PCS; principal; 2022-12-14 08:00)
DX: Z86.010 Personal history of colon polyps (principal); D12.3 Benign neoplasm of transverse colon; F17.210 Nicotine dependence, cigarettes, uncomplicated; I12.9 Hypertensive chronic kidney disease with stage 1 through stage 4 chronic kidney disease, or unspecified chronic kidney disease; E11.22 Type 2 diabetes mellitus with diabetic chronic kidney disease; N18.9 Chronic kidney disease, unspecified; Z79.899 Other long term (current) drug therapy; Z79.4 Long term (current) use of insulin; K21.9 Gastro-esophageal reflux disease without esophagitis; E78.5 Hyperlipidemia, unspecified; J44.9 Chronic obstructive pulmonary disease, unspecified; G47.33 Obstructive sleep apnea (adult) (pediatric)
CPT/HCPCS: 82947; 88305; J2704; J7120

== ENCOUNTER → 2022-12-27 | Outpatient (CLI) | payer MEDICARE, OTHER ==
[~2022-12-27] MED LIST changes: +PRAZ2 PO
[2022-12-27 12:30] LABS: BASOPHILS ABSOLUTE AUTO 0.03 K/mm3 (0.00-0.23); BASOPHILS PERCENT AUTO 1 % (0-2); EOSINOPHILS ABSOLUTE AUTO 0.08 K/mm3 (0.00-0.68); EOSINOPHILS PERCENT AUTO 1 % (0-6); Hematocrit 36.8 % (33.0-51.0); Hemoglobin 12.4 g/dL (11.5-16.0); IMMATURE GRAN ABSOLUTE AUTO 0.05 K/mm3 (0.00-0.10); IMMATURE GRAN PERCENT AUTO 1 % (0-1); LYMPHOCYTES ABSOLUTE AUTO 1.75 K/mm3 (0.84-5.20); LYMPHOCYTES PERCENT AUTO 29 % (21-46); MONOCYTES ABSOLUTE AUTO 0.53 K/mm3 (0.16-1.47); MONOCYTES PERCENT AUTO 9 % (4-13); Mean Corpuscular HGB 33.3 pg (26.0-34.0); Mean Corpuscular HGB Conc 33.7 g/dL (31.5-36.5); Mean Corpuscular Volume 99 fL (80-100); NEUTROPHILS ABSOLUTE AUTO 3.53 K/mm3 (1.96-9.15); NEUTROPHILS PERCENT AUTO 59 % (41-73); Platelet Count 179 K/mm3 (150-400); RDW Coefficient Variation 13.5 % (11.7-14.2); RDW Standard Deviation 49.2 fL (35.1-46.3); Red Blood Cell Count 3.72 M/mm3 (3.80-5.20); White Blood Cell Count 5.97 K/mm3 (4.00-11.30)
[2022-12-27 13:59] LABS: Albumin, Blood 2.7 g/dL (3.4-5.0); Anion Gap 5 mmol/L (6-16); Blood Urea Nitrogen 37 mg/dL (8-24); Bun/Creatinine Ratio 22.7 (12.0-20.0); CO2, Blood 26 mmol/L (21-32); Calcium, Blood 8.6 mg/dL (8.5-10.1); Chloride, Blood 106 mmol/L (98-108); Creatinine, Blood 1.63 mg/dL (0.40-1.00); Ferritin, Serum 129 ng/mL (8-252); Glomerular Filtration Rate 37 (60-); Glucose, Blood 173 mg/dL (70-99); Iron Serum 95 ug/dL (50-170); Percent Saturation 27.5 % (15.0-50.0); Phosphorus, Blood 3.8 mg/dL (2.5-4.9); Potassium, Blood 3.6 mmol/L (3.5-5.5); Sodium, Blood 137 mmol/L (136-145); Total Iron Binding Capacity 346 ug/dL (250-450)
== END | disposition home or self-care (01) ==
LOC: LAB SHORT 10:59 → LAB 10:59
PROVIDERS: Internal Medicine Nephrology
DX: E55.9 Vitamin D deficiency, unspecified (principal); N18.9 Chronic kidney disease, unspecified; D63.1 Anemia in chronic kidney disease
CPT/HCPCS: 36415; 80069; 82306; 82728; 83540; 83550; 83970; 85025

== ENCOUNTER → 2023-01-25 | Outpatient (CLI) | payer MEDICARE, OTHER | LOC: LAB 18:57 → LAB SHORT 18:57 | DX: R35.0 Frequency of micturition (principal) | CPT/HCPCS: 87086 ==

== ENCOUNTER 2023-04-11 23:37 | Emergency (ER) | payer MEDICARE, OTHER ==
[~2023-04-11] VITALS: Ht 162.6 cm; Wt 127.0 kg
[2023-04-12 05:06] VITALS: BP 165/92
== END 2023-04-12 05:31 | disposition home or self-care (01) ==
LOC: ER 23:37
DX: S70.01XA Contusion of right hip, initial encounter (principal); S40.021A Contusion of right upper arm, initial encounter; S09.90XA Unspecified injury of head, initial encounter; I13.0 Hypertensive heart and chronic kidney disease with heart failure and stage 1 through stage 4 chronic kidney disease, or unspecified chronic kidney disease; E11.22 Type 2 diabetes mellitus with diabetic chronic kidney disease; N18.9 Chronic kidney disease, unspecified; I50.9 Heart failure, unspecified; E03.9 Hypothyroidism, unspecified; E78.5 Hyperlipidemia, unspecified; I25.2 Old myocardial infarction; F03.90 Unspecified dementia, unspecified severity, without behavioral disturbance, psychotic disturbance, mood disturbance, and anxiety; G40.909 Epilepsy, unspecified, not intractable, without status epilepticus; F17.210 Nicotine dependence, cigarettes, uncomplicated; Z88.8 Allergy status to other drugs, medicaments and biological substances; Z88.5 Allergy status to narcotic agent; Z91.041 Radiographic dye allergy status; Z91.048 Other nonmedicinal substance allergy status; Z79.82 Long term (current) use of aspirin; Z79.4 Long term (current) use of insulin; Z79.899 Other long term (current) drug therapy
CPT/HCPCS: 70450; 72125; 73502; 99284-25

== ENCOUNTER → 2023-06-13 | Outpatient (CLI) | payer MEDICARE, OTHER | LOC: LAB SHORT 12:12 → LAB 12:12 | DX: I12.9 Hypertensive chronic kidney disease with stage 1 through stage 4 chronic kidney disease, or unspecified chronic kidney disease (principal); E11.22 Type 2 diabetes mellitus with diabetic chronic kidney disease; N18.30 Chronic kidney disease, stage 3 unspecified; R80.9 Proteinuria, unspecified | CPT/HCPCS: 82043 ==

== ENCOUNTER 2023-06-16 15:10 | Emergency (ER) | payer MEDICARE, OTHER ==
[~2023-06-16] VITALS: Ht 162.6 cm; Wt 127.0 kg
[2023-06-16 16:30] VITALS: BP 141/100
== END 2023-06-16 17:38 | disposition home or self-care (01) ==
LOC: ER 15:10
DX: M25.511 Pain in right shoulder (principal); Z88.5 Allergy status to narcotic agent; Z91.048 Other nonmedicinal substance allergy status; Z88.8 Allergy status to other drugs, medicaments and biological substances; Z79.82 Long term (current) use of aspirin; Z79.890 Hormone replacement therapy; Z79.2 Long term (current) use of antibiotics; Z79.1 Long term (current) use of non-steroidal anti-inflammatories (NSAID); Z79.4 Long term (current) use of insulin; Z79.899 Other long term (current) drug therapy; E11.22 Type 2 diabetes mellitus with diabetic chronic kidney disease; I13.0 Hypertensive heart and chronic kidney disease with heart failure and stage 1 through stage 4 chronic kidney disease, or unspecified chronic kidney disease; N18.9 Chronic kidney disease, unspecified; I50.9 Heart failure, unspecified; J44.9 Chronic obstructive pulmonary disease, unspecified; I25.2 Old myocardial infarction; G40.909 Epilepsy, unspecified, not intractable, without status epilepticus; K21.9 Gastro-esophageal reflux disease without esophagitis; E03.9 Hypothyroidism, unspecified; Z95.5 Presence of coronary angioplasty implant and graft; F17.210 Nicotine dependence, cigarettes, uncomplicated
CPT/HCPCS: 73030; 96372; 99283-25; J1885

== ENCOUNTER → 2023-07-03 | Outpatient (CLI) | payer MEDICARE, OTHER ==
[2023-07-03 13:10] LABS: Source, Urine Clean Catch
[2023-07-03 15:28] LABS: Appearance, Urine Clear (Clear); Bilirubin, Urine Neg (Neg); Blood, Urine Neg (Neg); Color, Urine Yellow (P-Yellow); Glucose Qualitative, Urine 2+ (Neg); Ketones, Urine Neg (Neg); Leukocyte Esterase, Urine Neg (Neg); Nitrite, Urine Neg (Neg); Protein, Urine 3+ (Neg); Urobilinogen, Urine NORM (Normal)
[2023-07-03 15:54] LABS: Amorphous Light (0-Heavy); Bacteria Few /hpf; Hyaline Casts 0-2 /lpf (0-2); Red Blood Cells, Urine Not Seen /hpf (0-2); Squamous Epithelial Cells Few /hpf (Few); White Blood Cells, Urine 0-2 /hpf (0-5)
== END ==
LOC: LAB 13:08 → LAB SHORT 13:08
PROVIDERS: Nurse Practitioner Family
DX: N39.0 Urinary tract infection, site not specified (principal)
CPT/HCPCS: 81001

== ENCOUNTER → 2023-08-28 | Outpatient (CLI) | payer MEDICARE, OTHER ==
[2023-08-28 17:21] LABS: BASOPHILS ABSOLUTE AUTO 0.03 K/mm3 (0.00-0.23); BASOPHILS PERCENT AUTO 0 % (0-2); EOSINOPHILS ABSOLUTE AUTO 0.08 K/mm3 (0.00-0.68); EOSINOPHILS PERCENT AUTO 1 % (0-6); Hematocrit 32.6 % (33.0-51.0); Hemoglobin 10.5 g/dL (11.5-16.0); IMMATURE GRAN ABSOLUTE AUTO 0.08 K/mm3 (0.00-0.10); IMMATURE GRAN PERCENT AUTO 1 % (0-1); LYMPHOCYTES ABSOLUTE AUTO 2.07 K/mm3 (0.84-5.20); LYMPHOCYTES PERCENT AUTO 28 % (21-46); MONOCYTES ABSOLUTE AUTO 0.61 K/mm3 (0.16-1.47); MONOCYTES PERCENT AUTO 8 % (4-13); Mean Corpuscular HGB 33.4 pg (26.0-34.0); Mean Corpuscular HGB Conc 32.2 g/dL (31.5-36.5); Mean Corpuscular Volume 104 fL (80-100); Mean Platelet Volume 10.3 fL (9.1-12.4); NEUTROPHILS ABSOLUTE AUTO 4.63 K/mm3 (1.96-9.15); NEUTROPHILS PERCENT AUTO 62 % (41-73); Platelet Count 172 K/mm3 (150-400); RDW Coefficient Variation 13.4 % (11.7-14.2); RDW Standard Deviation 51.1 fL (35.1-46.3); Red Blood Cell Count 3.14 M/mm3 (3.80-5.20)
== END ==
LOC: LAB 11:21 → LAB SHORT 11:21
PROVIDERS: Nurse Practitioner Family
DX: D53.9 Nutritional anemia, unspecified (principal)
CPT/HCPCS: 85025

== ENCOUNTER → 2023-09-25 | Outpatient (CLI) | payer MEDICARE, OTHER ==
[2023-09-25 20:05] LABS: BASOPHILS ABSOLUTE AUTO 0.02 K/mm3 (0.00-0.23); BASOPHILS PERCENT AUTO 0 % (0-2); EOSINOPHILS PERCENT AUTO 1 % (0-6); Hematocrit 36.7 % (33.0-51.0); Hemoglobin 11.9 g/dL (11.5-16.0); IMMATURE GRAN ABSOLUTE AUTO 0.05 K/mm3 (0.00-0.10); IMMATURE GRAN PERCENT AUTO 1 % (0-1); LYMPHOCYTES ABSOLUTE AUTO 2.46 K/mm3 (0.84-5.20); LYMPHOCYTES PERCENT AUTO 33 % (21-46); MONOCYTES ABSOLUTE AUTO 0.67 K/mm3 (0.16-1.47); MONOCYTES PERCENT AUTO 9 % (4-13); Mean Corpuscular HGB 33.6 pg (26.0-34.0); Mean Corpuscular HGB Conc 32.4 g/dL (31.5-36.5); Mean Corpuscular Volume 104 fL (80-100); Mean Platelet Volume 10.6 fL (9.1-12.4); NEUTROPHILS ABSOLUTE AUTO 4.22 K/mm3 (1.96-9.15); NEUTROPHILS PERCENT AUTO 56 % (41-73); Platelet Count 190 K/mm3 (150-400); RDW Coefficient Variation 13.7 % (11.7-14.2); RDW Standard Deviation 53.1 fL (35.1-46.3); Red Blood Cell Count 3.54 M/mm3 (3.80-5.20); White Blood Cell Count 7.52 K/mm3 (4.00-11.30)
[2023-09-25 20:51] LABS: Albumin, Blood 2.8 g/dL (3.4-5.0); Anion Gap 8 mmol/L (6-16); Blood Urea Nitrogen 36 mg/dL (8-24); CHOL/HDL RATIO 2.1; CO2, Blood 24 mmol/L (21-32); Calcium, Blood 9.2 mg/dL (8.5-10.1); Chloride, Blood 112 mmol/L (98-108); Cholesterol 123 mg/dL (50-200); Glomerular Filtration Rate 29 (60-); Glucose, Blood 71 mg/dL (70-99); HDL Cholesterol 58 mg/dL (>39); LDL/HDL RATIO 0.8; Low Density Lipoprotein Chol 44 mg/dL (0-110); Phosphorus, Blood 3.7 mg/dL (2.5-4.9); Potassium, Blood 4.6 mmol/L (3.5-5.5); Sodium, Blood 144 mmol/L (136-145); Triglycerides 107 mg/dL (30-160); Very Low Density Lipoprot Chol 21 mg/dL (6-32)
== END | disposition home or self-care (01) ==
LOC: LAB SHORT 07:15 → LAB 07:15
PROVIDERS: Nurse Practitioner Family
DX: E11.22 Type 2 diabetes mellitus with diabetic chronic kidney disease (principal); I12.9 Hypertensive chronic kidney disease with stage 1 through stage 4 chronic kidney disease, or unspecified chronic kidney disease; N18.30 Chronic kidney disease, stage 3 unspecified; D53.9 Nutritional anemia, unspecified; E78.2 Mixed hyperlipidemia
CPT/HCPCS: 80061; 80069; 82607; 82746; 83036; 85025

== ENCOUNTER → 2023-10-09 | Outpatient (CLI) | payer MEDICARE, OTHER ==
[2023-10-09 17:52] LABS: Valproic Acid 64.5 ug/mL (50.0-100.0)
== END ==
LOC: LAB SHORT 15:33 → LAB 15:33
PROVIDERS: Psychiatry & Neurology Psychiatry
DX: Z51.81 Encounter for therapeutic drug level monitoring (principal)
CPT/HCPCS: 80164

== ENCOUNTER → 2023-10-14 | Outpatient (CLI) | payer MEDICARE, OTHER ==
[2023-10-15 15:13] LABS: Source, Urine Clean Catch
[2023-10-15 15:58] LABS: Appearance, Urine Clear (Clear); Bilirubin, Urine Neg (Neg); Blood, Urine Neg (Neg); Color, Urine Yellow (P-Yellow); Glucose Qualitative, Urine 2+ (Neg); Ketones, Urine Neg (Neg); Leukocyte Esterase, Urine Neg (Neg); Nitrite, Urine Neg (Neg); Protein, Urine 3+ (Neg); Specific Gravity, Urine 1.015 (1.003-1.022); Urobilinogen, Urine NORM (Normal); pH, Urine 6.5 (5.0-8.0)
[2023-10-15 16:14] LABS: Red Blood Cells, Urine 0-2 /hpf (0-2); White Blood Cells, Urine 0-2 /hpf (0-5)
[2023-10-15 16:15] LABS: Bacteria Few /hpf; Squamous Epithelial Cells Few /hpf (Few)
== END ==
LOC: LAB 15:11 → LAB SHORT 15:11
PROVIDERS: Nurse Practitioner Family
DX: N39.0 Urinary tract infection, site not specified (principal)
CPT/HCPCS: 81001

== ENCOUNTER 2023-11-14 16:09 | Emergency (ER) | payer MEDICARE, OTHER ==
[~2023-11-14] VITALS: Ht 162.6 cm; Wt 95.2 kg
[2023-11-14 17:28] LABS: BASOPHILS ABSOLUTE AUTO 0.03 K/mm3 (0.00-0.23); BASOPHILS PERCENT AUTO 0 % (0-2); EOSINOPHILS ABSOLUTE AUTO 0.12 K/mm3 (0.00-0.68); EOSINOPHILS PERCENT AUTO 2 % (0-6); Hematocrit 36.4 % (33.0-51.0); Hemoglobin 12.1 g/dL (11.5-16.0); IMMATURE GRAN ABSOLUTE AUTO 0.11 K/mm3 (0.00-0.10); IMMATURE GRAN PERCENT AUTO 2 % (0-1); LYMPHOCYTES ABSOLUTE AUTO 2.31 K/mm3 (0.84-5.20); LYMPHOCYTES PERCENT AUTO 34 % (21-46); MONOCYTES ABSOLUTE AUTO 0.51 K/mm3 (0.16-1.47); MONOCYTES PERCENT AUTO 8 % (4-13); Mean Corpuscular HGB 33.5 pg (26.0-34.0); Mean Corpuscular HGB Conc 33.2 g/dL (31.5-36.5); Mean Corpuscular Volume 101 fL (80-100); Mean Platelet Volume 9.5 fL (9.1-12.4); NEUTROPHILS ABSOLUTE AUTO 3.73 K/mm3 (1.96-9.15); NEUTROPHILS PERCENT AUTO 55 % (41-73); Platelet Count 171 K/mm3 (150-400); RDW Coefficient Variation 14.2 % (11.7-14.2); RDW Standard Deviation 53.1 fL (35.1-46.3); Red Blood Cell Count 3.61 M/mm3 (3.80-5.20); White Blood Cell Count 6.81 K/mm3 (4.00-11.30)
[2023-11-14 17:46] LABS: Albumin, Blood 2.7 g/dL (3.4-5.0); Albumin/Globulin Ratio 0.7 (0.8-1.8); Bilirubin, Total 0.3 mg/dL (0.1-1.0); Bun/Creatinine Ratio 19.8 (12.0-20.0); Calcium, Blood 8.8 mg/dL (8.5-10.1); Creatinine, Blood 1.77 mg/dL (0.40-1.00); Globulin, Blood 3.8 g/dL (2.2-4.0); Potassium, Blood 4.5 mmol/L (3.5-5.5); Total Protein, Blood 6.5 g/dL (6.4-8.2)
[2023-11-14 17:52] LABS: Valproic Acid 61.9 ug/mL (50.0-100.0)
[2023-11-14 19:41] VITALS: BP 154/78
== END 2023-11-14 19:39 | disposition home or self-care (01) ==
LOC: ER 16:09
PROVIDERS: Emergency Medicine
DX: S40.022A Contusion of left upper arm, initial encounter (principal); R29.6 Repeated falls; N18.9 Chronic kidney disease, unspecified; I13.0 Hypertensive heart and chronic kidney disease with heart failure and stage 1 through stage 4 chronic kidney disease, or unspecified chronic kidney disease; I50.9 Heart failure, unspecified; E11.22 Type 2 diabetes mellitus with diabetic chronic kidney disease; I25.2 Old myocardial infarction; E03.9 Hypothyroidism, unspecified; E78.5 Hyperlipidemia, unspecified; J44.9 Chronic obstructive pulmonary disease, unspecified; K21.9 Gastro-esophageal reflux disease without esophagitis; G40.909 Epilepsy, unspecified, not intractable, without status epilepticus; G47.00 Insomnia, unspecified; F43.10 Post-traumatic stress disorder, unspecified; Z88.8 Allergy status to other drugs, medicaments and biological substances; Z88.5 Allergy status to narcotic agent; Z91.048 Other nonmedicinal substance allergy status; Z79.899 Other long term (current) drug therapy; Z79.82 Long term (current) use of aspirin; Z79.4 Long term (current) use of insulin
CPT/HCPCS: 80053; 80164; 85025; 93005; 93010; 99285-25

== ENCOUNTER → 2023-11-18 | Outpatient (CLI) | payer MEDICARE, OTHER ==
[2023-11-19 11:03] LABS: Source, Urine Clean Catch
[2023-11-19 13:36] LABS: Bilirubin, Urine Neg (Neg); Blood, Urine Neg (Neg); Glucose Qualitative, Urine Neg (Neg); Ketones, Urine Neg (Neg); Leukocyte Esterase, Urine Neg (Neg); Nitrite, Urine Neg (Neg); Protein, Urine 2+ (Neg); Urobilinogen, Urine NORM (Normal)
[2023-11-19 14:04] LABS: Appearance, Urine Clear (Clear); Color, Urine Pale Yellow (P-Yellow)
[2023-11-19 14:05] LABS: Bacteria Few /hpf; Mucus Light (0-Heavy); Red Blood Cells, Urine 0-2 /hpf (0-2); Squamous Epithelial Cells Few /hpf (Few); White Blood Cells, Urine 0-2 /hpf (0-5)
== END | disposition home or self-care (01) ==
LOC: LAB 09:15 → LAB SHORT 09:15
PROVIDERS: Nurse Practitioner Family
DX: N39.0 Urinary tract infection, site not specified (principal)
CPT/HCPCS: 81001

== ENCOUNTER → 2023-12-11 | Outpatient (CLI) | payer MEDICARE, OTHER ==
[2023-12-11 15:25] LABS: Source, Urine Clean Catch
[2023-12-11 16:43] LABS: Appearance, Urine Clear (Clear); Bilirubin, Urine Neg (Neg); Blood, Urine 1+ (Neg); Color, Urine Yellow (P-Yellow); Glucose Qualitative, Urine 2+ (Neg); Ketones, Urine Neg (Neg); Leukocyte Esterase, Urine Neg (Neg); Nitrite, Urine Neg (Neg); Protein, Urine 3+ (Neg); Specific Gravity, Urine 1.015 (1.003-1.022); Urobilinogen, Urine NORM (Normal)
[2023-12-11 16:56] LABS: Bacteria Few /hpf; Hyaline Casts 0-2 /lpf (0-2); Red Blood Cells, Urine 0-2 /hpf (0-2); Squamous Epithelial Cells Few /hpf (Few); White Blood Cells, Urine 0-2 /hpf (0-5)
[2023-12-11 18:08] LABS: Thyroid Stimulating Hormone 0.591 uIU/mL (0.360-4.800)
[2023-12-11 19:56] LABS: Protein, Urine Random 241.9 mg/dL (0.0-11.9); Protein/Creat Ratio, Ur Random 2.1
[2023-12-11 20:00] LABS: Microalb/Creat Ratio UR, Rand 1666.67 mg/g (0.000-30.000)
[2023-12-12 09:11] LABS: CALCIUM, SERUM 8.3 mg/dL (8.7-10.2); CREATININE, SERUM 1.91 mg/dL (0.57-1.00); PHOSPHORUS, SERUM 3.8 mg/dL (3.0-4.3); POTASSIUM, SERUM 4.1 mmol/L (3.5-5.2)
[2023-12-13 08:12] LABS: A/G RATIO 1.1 (1.2-2.2); BILIRUBIN, TOTAL 0.3 mg/dL (0.0-1.2); CALCIUM, SERUM 8.7 mg/dL (8.7-10.2); CREATININE, SERUM 1.89 mg/dL (0.57-1.00); GLOBULIN, TOTAL 2.8 g/dL (1.5-4.5); POTASSIUM, SERUM 3.6 mmol/L (3.5-5.2); PROTEIN, TOTAL, SERUM 5.9 g/dL (6.0-8.5)
== END ==
LOC: LAB 15:20 → LAB SHORT 15:20
PROVIDERS: Hospitalist; Nurse Practitioner Family
DX: E11.22 Type 2 diabetes mellitus with diabetic chronic kidney disease (principal); N18.4 Chronic kidney disease, stage 4 (severe); I12.9 Hypertensive chronic kidney disease with stage 1 through stage 4 chronic kidney disease, or unspecified chronic kidney disease; E03.9 Hypothyroidism, unspecified
CPT/HCPCS: 80053; 80069; 81001; 82043; 82570; 82728; 83970; 84156; 84443; 86334

== ENCOUNTER → 2024-03-09 | Outpatient (CLI) | payer MEDICARE, OTHER | END | disposition home or self-care (01) | LOC: LAB SHORT 09:30 → LAB 09:30 | DX: L03.314 Cellulitis of groin (principal); L02.92 Furuncle, unspecified | CPT/HCPCS: 87070; 87075; 87077; 87186; 87205 ==

== ENCOUNTER → 2024-05-07 | Outpatient (CLI) | payer MEDICARE, OTHER ==
[2024-05-07 17:36] LABS: Source, Urine Voided
[2024-05-07 18:50] LABS: Appearance, Urine Hazy (Clear); Bilirubin, Urine Neg (Neg); Blood, Urine Neg (Neg); Color, Urine Yellow (P-Yellow); Glucose Qualitative, Urine 2+ (Neg); Ketones, Urine Neg (Neg); Leukocyte Esterase, Urine Neg (Neg); Nitrite, Urine Neg (Neg); Protein, Urine 3+ (Neg); Specific Gravity, Urine 1.015 (1.003-1.022); Urobilinogen, Urine NORM (Normal)
[2024-05-07 19:14] LABS: Bacteria Mod /hpf; Mucus Light (0-Heavy); Red Blood Cells, Urine 0-2 /hpf (0-2); Squamous Epithelial Cells Mod /hpf (Few); White Blood Cells, Urine 0-2 /hpf (0-5)
[2024-05-07 19:15] LABS: Hyaline Casts 0-2 /lpf (0-2)
[2024-05-07 19:27] LABS: Creatinine, Urine Random 68.1 mg/dL (27.00-270.00); Protein, Urine Random 216.6 mg/dL (0.0-11.9); Protein/Creat Ratio, Ur Random 3.2
== END | disposition home or self-care (01) ==
LOC: LAB SHORT 17:33 → LAB 17:33
PROVIDERS: Hospitalist
DX: I12.9 Hypertensive chronic kidney disease with stage 1 through stage 4 chronic kidney disease, or unspecified chronic kidney disease (principal); N18.32 Chronic kidney disease, stage 3b
CPT/HCPCS: 81001; 82570; 84156; 87086

== ENCOUNTER → 2024-06-09 | Outpatient (CLI) | payer MEDICARE, OTHER ==
[2024-06-10 11:07] LABS: Source, Urine Clean Catch
[2024-06-10 13:16] LABS: Appearance, Urine Clear (Clear); Bilirubin, Urine Neg (Neg); Blood, Urine Neg (Neg); Color, Urine Yellow (P-Yellow); Glucose Qualitative, Urine 3+ (Neg); Ketones, Urine Neg (Neg); Leukocyte Esterase, Urine Neg (Neg); Nitrite, Urine Neg (Neg); Protein, Urine 3+ (Neg); Urobilinogen, Urine NORM (Normal)
[2024-06-10 13:33] LABS: Amorphous Light (0-Heavy); Bacteria Rare /hpf; Red Blood Cells, Urine Not Seen /hpf (0-2); Squamous Epithelial Cells Few /hpf (Few); White Blood Cells, Urine 0-2 /hpf (0-5)
== END ==
LOC: LAB SHORT 17:45 → LAB 17:45
PROVIDERS: Nurse Practitioner Family
DX: N39.0 Urinary tract infection, site not specified (principal)
CPT/HCPCS: 81001

== ENCOUNTER → 2024-06-17 | Outpatient (CLI) | payer MEDICARE, OTHER | END | disposition home or self-care (01) | LOC: LAB SHORT 10:54 → LAB 10:54 | DX: M79.646 Pain in unspecified finger(s) (principal) | CPT/HCPCS: 84550 ==

== ENCOUNTER 2024-08-15 03:01 | Inpatient (IN) | payer MEDICARE, OTHER ==
[~2024-08-15] VITALS: Ht 162.6 cm; Wt 81.7 kg
[~2024-08-15 03:01] MED LIST changes: +ACETAMINOPHEN500 M2 PO
[2024-08-15] MEDS ORDERED: Ketorolac Tromethamine 30mg Vial IV ONE (03:20)
[2024-08-15] MEDS ORDERED: NS 1,000 ML IV SCH (03:20)
[2024-08-15 03:30] LABS: BASOPHILS ABSOLUTE AUTO 0.02 K/mm3 (0.00-0.23); BASOPHILS PERCENT AUTO 0 % (0-2); EOSINOPHILS PERCENT AUTO 0 % (0-6); Hemoglobin 9.8 g/dL (11.5-16.0); IMMATURE GRAN ABSOLUTE AUTO 0.13 K/mm3 (0.00-0.10); IMMATURE GRAN PERCENT AUTO 1 % (0-1); LYMPHOCYTES ABSOLUTE AUTO 1.37 K/mm3 (0.84-5.20); LYMPHOCYTES PERCENT AUTO 9 % (21-46); MONOCYTES ABSOLUTE AUTO 2.35 K/mm3 (0.16-1.47); MONOCYTES PERCENT AUTO 15 % (4-13); Mean Corpuscular HGB 33.2 pg (26.0-34.0); Mean Corpuscular HGB Conc 32.7 g/dL (31.5-36.5); Mean Corpuscular Volume 102 fL (80-100); Mean Platelet Volume 9.6 fL (9.1-12.4); NEUTROPHILS ABSOLUTE AUTO 12.27 K/mm3 (1.96-9.15); NEUTROPHILS PERCENT AUTO 76 % (41-73); Platelet Count 137 K/mm3 (150-400); RDW Coefficient Variation 14.4 % (11.7-14.2); RDW Standard Deviation 54.1 fL (35.1-46.3); Red Blood Cell Count 2.95 M/mm3 (3.80-5.20); White Blood Cell Count 16.14 K/mm3 (4.00-11.30)
[2024-08-15 03:34] LABS: Source, Urine Foley catheter
[2024-08-15 03:37] LABS: Bilirubin, Urine Neg (Neg); Blood, Urine 4+ (Neg); Glucose Qualitative, Urine Neg (Neg); Ketones, Urine Neg (Neg); Leukocyte Esterase, Urine 3+ (Neg); Nitrite, Urine Pos (Neg); Protein, Urine 4+ (Neg); Specific Gravity, Urine 1.015 (1.003-1.022); Urobilinogen, Urine 1+ (Normal)
[2024-08-15] MEDS ORDERED: CefTRIAXone Sodium 1,000 MG in NS 100 ML IV ONE (03:50)
[2024-08-15 03:53] LABS: Appearance, Urine Turbid (Clear); Color, Urine Yellow (P-Yellow)
[2024-08-15 03:53] LABS: Albumin, Blood 2.2 g/dL (3.4-5.0); Albumin/Globulin Ratio 0.6 (0.8-1.8); Bilirubin, Total 0.4 mg/dL (0.1-1.0); Bun/Creatinine Ratio 15.5 (12.0-20.0); Calcium, Blood 8.5 mg/dL (8.5-10.1); Creatinine, Blood 3.22 mg/dL (0.40-1.00); Free Thyroxine 1.07 ng/dL (0.70-1.60); Globulin, Blood 3.7 g/dL (2.2-4.0); Magnesium, Blood 1.7 mg/dL (1.6-2.4); Phosphorus, Blood 3.1 mg/dL (2.5-4.9); Potassium, Blood 4.1 mmol/L (3.5-5.5); Thyroid Stimulating Hormone 0.277 uIU/mL (0.360-4.800); Total Protein, Blood 5.9 g/dL (6.4-8.2)
[2024-08-15 03:54] LABS: Amorphous Light (0-Heavy); Bacteria Mod /hpf; Red Blood Cells, Urine 0-2 /hpf (0-2); Squamous Epithelial Cells Few /hpf (Few); White Blood Cells, Urine TNTC /hpf (0-5)
[2024-08-15 04:11] LABS: Influenza A, PCR NEGATIVE (NEGATIVE); Influenza B, PCR NEGATIVE (NEGATIVE); Resp Syncytial Virus, PCR NEGATIVE (NEGATIVE); SARS-Cov-2 (COVID-19) PCR, MMC NEGATIVE (NEGATIVE)
[2024-08-15] MEDS ORDERED: Acetaminophen 160MG / 5ML 10.15 UDC PO ONE (04:40)
[2024-08-15] MEDS ORDERED: Acetaminophen 650 MG Supp PR PRN (05:00)
[2024-08-15] MEDS ORDERED: Acetaminophen 325 MG TABLET PO PRN (05:00)
[2024-08-15] MEDS ORDERED: Lactated Ringer's 1,000 ML IV SCH (05:00)
[2024-08-15] MEDS ORDERED: FLU VACC TS2024-25(6MOS UP)/PF 45 MCG/0.5 ML SYRINGE IM ONE (05:00)
[2024-08-15] MEDS ORDERED: Bisacodyl 10 MG Supp PR PRN (05:05)
[2024-08-15] MEDS ORDERED: Haloperidol 5 MG Tab PO PRN (05:50)
[2024-08-15] MEDS ORDERED: Insulin Regular 100 UNIT/ML 10ML Vial SC SCH ×2 (06:00→16:30)
[2024-08-15] MEDS ORDERED: Levothyroxine Sodium 0.112 MG Tab PO SCH (06:00)
[2024-08-15 06:18] VITALS: BP 121/74
--- NOTE | 2024-08-15 06:34 | NUR ---
ARRIVAL TO PCU: PT ARRIVED TO PCU-10 VIA GURNEY AT APPROX 0610. PT LETHARGIC BUT ABLE TO WAKE TO VERBAL STIMULI. ABLE TO NOD HEAD YES/NO WHEN ASKED QUESTIONS & ABLE TO FOLLOW COMMANDS. UNABLE TO VERBALIZE NEEDS AT THIS TIME. VSS ON ARRIVAL. HR 80'S, SINUS RHYTHM ON TELE. SBP 120'S, MAP >65. SPO2 >90% ON 4L O2 VIA NC. AFEBRILE W/ ORAL TEMP. BED BATH COMPLETED FOLLOWING ARRIVAL, ATTENDS C/D/I. PUREWICK PLACED AT THIS TIME FOR INCONTINENCE. LR INFUSING PER EMAR. CALL LIGHT IN REACH, BED ALARM ON FOR PT SAFETY. WILL REPORT TO DAY SHIFT RN.
[2024-08-15 06:47] LABS: Percent Saturation 3.7 % (15.0-50.0)
[2024-08-15 07:57] VITALS: BP 113/71
[2024-08-15] MEDS ORDERED: Gabapentin 100 MG Cap PO SCH (09:00)
[2024-08-15] MEDS ORDERED: Lactobacil 2-S.Thermo-Bifido 1 1 Cap PO SCH (09:00)
[2024-08-15] MEDS ORDERED: Atorvastatin 40 MG Tab PO SCH (09:00)
[2024-08-15] MEDS ORDERED: Haloperidol 5 MG Tab PO SCH (09:00)
[2024-08-15] MEDS ORDERED: ALLO100 PO (09:13)
[2024-08-15] MEDS ORDERED: TICA90TA PO (09:14)
[2024-08-15] MEDS ORDERED: CALC.25 PO (09:15)
[2024-08-15] MEDS ORDERED: COMBIVENT RESPIM4 G1 INH (09:16)
[2024-08-15] MEDS ORDERED: DIVALPROEX SOD500 M2 PO (09:17)
[2024-08-15] MEDS ORDERED: FURO20 PO (09:18)
[2024-08-15] MEDS ORDERED: LOSA25 PO (09:20)
[2024-08-15] MEDS ORDERED: REFRESH TEARS P10 ML BOTHEYES (09:27)
[2024-08-15] MEDS ORDERED: Rena-Vite Tabl0.8 MG PO (09:28)
[2024-08-15] MEDS ORDERED: VENL75ER PO (09:29)
[2024-08-15] MEDS ORDERED: Vitamin D1000 UNI1 PO (09:31)
[2024-08-15] MEDS ORDERED: Vitamin B-12100 MCG SL (09:31)
[2024-08-15] MEDS ORDERED: NITR.4SL SL (09:32)
[2024-08-15] MEDS ORDERED: NYSTOP15 GM TOP (09:32)
[2024-08-15] MEDS ORDERED: HALOPERIDOL2 MG/1 M1 PO (09:36)
--- NOTE | 2024-08-15 10:02 | NUR ---
AM NOTE: PATIENT WAKES TO THIS RN'S VOICE. ORIENTED TO SELF BUT RESPONDS "I DON'T KNOW" TO ALL OTHER ORIENTED QUESTIONS. ABLE TO FOLLOW ALL ASSESSMENT INSTRUCTIONS. 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 LEFT PUPIL SHAPE SLIGHTLY IRREGULAR. BOTH PUPILS RESPONSIVE TO LIGHT. MOVING ALL EXTREMITIES. OVERALL VERY WEAK. PHYSICAL THERAPY ORDERS IN PLACE AND PLAN TO GET UP IN CHAIR FOR ALL MEALS. TELE SHOWING SR WITH HR 60-80'S. SBP 110'S. PPP. DENIES CHEST PAIN/PRESSURE/PAPLITATIONS. LR INFUSING PER EMAR. TRACE EDEMA NOTED TO BLE. ON 3L NASAL CANNULA SATING MID 90'S. DENIES SOB. EVEN AND UNLABORED RESPIRATIONS. OCCASIONAL COUGH, NONPRODUCITVE. BOWEL TONES PRESENT IN ALL 4 QUADRANTS. BEDISDE SWALLOW DONE WITH NO ISSUES NOTED. PATIENT REQUESTING MEDS IN APPLESAUCE. DIET ORDERS IN PLACE BASED ON [place] DIET. Q6 BLOOD SUGARS. MISSING/BROKEN TEETH. PUREWICK IN PLACE WELL ATTENDS. RENAL US COMPLETED THIS AM. MED REC COMPLETED AND DR. SMITH UPDATED. CALL LIGHT IN REACH. BED ALARM IN PLACE.
--- NOTE | 2024-08-15 10:45 | NUR ---
THIS RN [facility] AND PROVIDED UPDATE. THIS RN THEN PLACED CALL TO GUARDIAN TOVA WHO IS PATIENT'S BROTHER AND PROVIDED UPDATE. TOVA [phone] LIVES IN [facility] AND AT TIMES IS NOT REACHABLE BY CELLPHONE DUE TO BEING A BRANCH CHIEF.
--- NOTE | 2024-08-15 11:17 | NUR ---
DNR CODE STATUS CONFIRMED WITH GUARDIAN TOVA BY THIS RN. CALL PLACED TO DR. SMITH. ORDER UPDATED. DNR BAND IN PLACE.
[2024-08-15 11:31] VITALS: BP 92/66
[2024-08-15] MEDS ORDERED: Nitroglycerin 0.4 MG SUBL SL PRN (11:35)
[2024-08-15] MEDS ORDERED: Loperamide HCl 2 MG Cap PO PRN (11:35)
[2024-08-15] MEDS ORDERED: Haloperidol Lactate 2 MG/ML Conc 1ML Dose PO PRN (11:40)
[2024-08-15] MEDS ORDERED: Peg 400/Hypromellose/Glycerin 15 DROP/ML BTL BOTHEYES PRN (11:55)
[2024-08-15] MEDS ORDERED: Clotrimazole 1% Cream 15 GM Tube TOP PRN (12:00)
[2024-08-15] MEDS ORDERED: Albuterol 2.5 MG/3 ML VIAL INH PRN (13:40)
[2024-08-15 15:19] VITALS: BP 115/64
[2024-08-15] MEDS ORDERED: Ipratropium/Albuterol SulF 2.5-0.5MG/3 ML Amp INH SCH ×2 (18:00→21:00)
--- NOTE | 2024-08-15 18:06 | NUR ---
SHIFT SUMMARY: PATIENT MENTATION CONTINUES TO IMPROVE THROUGHOUT SHIFT. SPEECH CLEARER AND MOVEMENTS EASIER. UP TO RECLINER FOR ALL MEALS. UP TO BSC THREE TIMES TODAY WITH 2 BOWEL MOVEMENTS. NO CHANGES TO TELE. REMAINS IN SR. ON 3L NASAL CANNULA. NEEDING LESS ASSISTANCE THROUGHOUT THE DAY WITH MEALS. USING CALL LIGHT FOR NEEDS. BED ALARM AND CHAIR ALARM REMAIN IN PLACE. CALL LIGHT IN REACH. PATIENT SITTING IN RECLINER EATING DINNER AT THIS TIME, DENIES NEEDS.
[2024-08-15 19:39] VITALS: BP 138/80
[2024-08-15] MEDS ORDERED: Ticagrelor 90 MG TABLET PO SCH (21:00)
[2024-08-15] MEDS ORDERED: Divalproex Sodium 500 MG TABLET.DR PO SCH (21:00)
[2024-08-15] MEDS ORDERED: Lacosamide 50 MG Tablet PO SCH (21:00)
[2024-08-15] MEDS ORDERED: Prazosin HCl 1 MG Cap PO SCH (21:00)
--- NOTE | 2024-08-15 21:34 | NUR ---
PHARMACY NOTIFIED OF G NEGATIVE BACILLI, PER PHARMACY, CURRENT IV ABX EFFECTIVE.
[2024-08-16] VITALS (11 sets, daily range): BP systolic 106–146; BP diastolic 69–116
[2024-08-16] MEDS ORDERED: Nicotine Polacrilex 2 MG Gum PO PRN (01:20)
--- NOTE | 2024-08-16 04:21 | NUR ---
SHIFT SUMMARY ALFRED WAS ALERT AND ORIENTED X2 ON ASSESMENT. PT REQUESTING TO USE COMMODE FREQUENTLY FOR FIRST 2 HOURS OF SHIFT, HAVING DIFFICULTY PRODUCING BM OR VOID. 1 SM BM WAS PRODUCED, AND NO VOID. NOTED THAT OUTPUT HAS BEEN LOW AND BLADDER SCANNED THE PT TO REVEAL 24 ML URINE RETAINED. VERIFIED BY GAME ARTIST. PT DID HAVE AN INCONTINENT VOID LATER IN THE SHIFT. PT TREMORS CAUSING ARTIFACT ON TELE MAKING IT LOOK LIKE PT IS IN VTACH FREQUENTLY. PT MENTATION IMPROVED FROM TIME OF ADMIT, PT ANSWERING QUESTIONS APPROPRIATELY. PT RESTING IN BED AT A LOW POSITION WITH CALL LIGHT IN REACH.
[2024-08-16] MEDS ORDERED: CefTRIAXone Sodium 1,000 MG in NS 100 ML IV SCH (06:00)
[2024-08-16] MEDS ORDERED: Allopurinol 100 MG Tab PO SCH (09:00)
[2024-08-16] MEDS ORDERED: Cholecalciferol 1000 Unit Tablet (=25MCG) PO SCH (09:00)
[2024-08-16] MEDS ORDERED: Nicotine 21 MG PATCH TOP SCH (09:00)
[2024-08-16] MEDS ORDERED: Heparin Sodium,Porcine 5,000 UNIT/0.5 ML SDV SC SCH (09:00)
[2024-08-16] MEDS ORDERED: Polyethylene Glycol 3350 17 gm PO SCH (09:00)
[2024-08-16] MEDS ORDERED: Venlafaxine HCl 75 MG CapCR PO SCH (09:00)
--- NOTE | 2024-08-16 10:15 | NUR ---
AM NOTE: PATIENT ALERT TO SELF AND PLACE THIS AM. IMPROVED STRENGTH AND ALERTNESS COMPARED TO YESTERDAY DAY SHIFT. UP TO RECLINER FOR ALL MEALS. TREMORS IN RIGHT UPPER EXTREMITY. CALL PLACED TO ZACHARY TO UPDATE. ZACHARY CONFIRMED PATIENT MOBILITY AND PRESENTATION BASELINE. ZACHARY RN TRYING TO BRING PATIENT HOME CPAP IN FOR NOC. MEDICAL STATUS NO TELE. DENIES CHEST PAIN/PRESSURE/PALPITATIONS. SBP 110-120'S. HR 80'S. PPP. IV SALINE LOCKED. ON 3L NASAL CANNULA WHICH IS PATIENTS BASELINE SATING 93-95%. PATIENT FREQUENTLY TAKING OFF AND NEEDING REMINDERS TO KEEP ON. CONTINUOUS PULSE OX IN PLACE. EVEN AND UNLABORED RESPIRATIONS. LUNGS CLEAR WITH OCCASIONAL COUGH. BOWEL TONES PRESENT. TOLERATING PO DIET. UP TO BSC WITH 1-2 PERSON ASSIST. DENIES ABDOMINAL PAIN/NAUSEA. SKIN WITH SOME SCATTERED BRUISING. PHYSICAL THERAPY IN ROOM THIS AM. BED AND CHAIR ALARMS IN USE. NICOTINE PATCH TO LEFT SHOULDER. CALL LIGHT IN REACH. PATIENT SITTING UP IN RECLINER AT THIS TIME WATCHING TV WITH CHAIR ALARM IN PLACE.
[2024-08-16 10:31] LABS: Bun/Creatinine Ratio 19.7 (12.0-20.0); Calcium, Blood 8.8 mg/dL (8.5-10.1); Creatinine, Blood 3.1 mg/dL (0.40-1.00); Potassium, Blood 4.1 mmol/L (3.5-5.5)
[2024-08-16] MEDS ORDERED: D5W-1/2NS 1,000 ML IV SCH (15:25)
[2024-08-16] MEDS ORDERED: D5W-1/2NS KCl 10mEq 1,000 ML IV SCH (15:25)
--- NOTE | 2024-08-16 18:06 | NUR ---
SHIFT SUMMARY: NO ACUTE CHANGES. PATIENT UP IN RECLINER AT THIS TIME EATING DINNER. REMAINS ON 3L NASAL CANNULA. MEDICAL STATUS NO TELE. DENIES PAINS. VITAL SIGNS STABLE. CHAIR ALARM IN PLACE. CALL LIGHT IN REACH.
[2024-08-16] MEDS ORDERED: Sodium Bicarbonate 650 MG Tab PO SCH (21:00)
[2024-08-17 04:02] LABS: BASOPHILS ABSOLUTE AUTO 0.02 K/mm3 (0.00-0.23); BASOPHILS PERCENT AUTO 0 % (0-2); EOSINOPHILS ABSOLUTE AUTO 0.03 K/mm3 (0.00-0.68); EOSINOPHILS PERCENT AUTO 0 % (0-6); Hematocrit 26.2 % (33.0-51.0); Hemoglobin 8.6 g/dL (11.5-16.0); IMMATURE GRAN ABSOLUTE AUTO 0.12 K/mm3 (0.00-0.10); IMMATURE GRAN PERCENT AUTO 2 % (0-1); LYMPHOCYTES ABSOLUTE AUTO 1.35 K/mm3 (0.84-5.20); LYMPHOCYTES PERCENT AUTO 18 % (21-46); MONOCYTES PERCENT AUTO 11 % (4-13); Mean Corpuscular HGB 33.9 pg (26.0-34.0); Mean Corpuscular HGB Conc 32.8 g/dL (31.5-36.5); Mean Corpuscular Volume 103 fL (80-100); Mean Platelet Volume 10.3 fL (9.1-12.4); NEUTROPHILS ABSOLUTE AUTO 5.25 K/mm3 (1.96-9.15); NEUTROPHILS PERCENT AUTO 69 % (41-73); Platelet Count 111 K/mm3 (150-400); RDW Coefficient Variation 14.2 % (11.7-14.2); RDW Standard Deviation 53.3 fL (35.1-46.3); Red Blood Cell Count 2.54 M/mm3 (3.80-5.20); White Blood Cell Count 7.57 K/mm3 (4.00-11.30)
[2024-08-17 04:26] LABS: Albumin, Blood 1.8 g/dL (3.4-5.0); Albumin/Globulin Ratio 0.5 (0.8-1.8); Bilirubin, Total 0.2 mg/dL (0.1-1.0); Calcium, Blood 8.5 mg/dL (8.5-10.1); Creatinine, Blood 2.86 mg/dL (0.40-1.00); Globulin, Blood 3.8 g/dL (2.2-4.0); Total Protein, Blood 5.6 g/dL (6.4-8.2)
[2024-08-17 04:43] VITALS: BP 137/85
--- NOTE | 2024-08-17 05:11 | NUR ---
SHIFT SUMMARY ALFRED WAS ALERT AND ORIENTED X2 ON ASSESSMENT. CPAP SET UP AND IN USE TONIGHT. PT MEDICAL STATUS, NO TELE. PT MENTATION APPEARS TO BE NEAR WHAT IS REPORTED HER BASELINE MENTATION. UPDATE GIVEN TO [facility]. PT LIKELY TO RETURN TO [facility] DAY SHIFT TODAY. NO ACUTE EVENTS TONIGHT OR NOTED CHANGES TO PT CONDITION. PT RESTING IN BED.
[2024-08-17 08:11] VITALS: BP 143/115
[2024-08-17] MEDS ORDERED: SODBIC650 PO (09:37)
[2024-08-17] MEDS ORDERED: VISBIOME 112.51 EACH PO (09:37)
[2024-08-17] MEDS ORDERED: DOXY100 PO (09:38)
--- NOTE | 2024-08-17 13:43 | NUR ---
DISCHARGE SUMMARY PT ALERT, ORIENTED TO BASELINE PER FACILITY. VSS. PT ABLE TO AMBULATE STAND/PIVOT W/ 2P GB HEAVY ASSIST FROM BED TO CHAIR. IVS REMOVED. MEDICATIONS WHOLE WITH APPLESAUCE. PT MED W/ NO TELE. NO PERSONAL BELONGINGS IN ROOM. TRANSPORT ARRIVED. PT STOOD/PIVOT FROM CHAIR TO WHEELCHAIR W/ ASSIST IN GOWN AND HOSPITAL PANTS. DISCHARGE PAPERWORK GIVEN TO TRANSPORT TEAM. PT WHEELED TO TRANSPORT VEHICLE ON 3L NC.
[2024-08-17] MEDS ORDERED: Calcitriol 0.25 MCG Cap PO SCH (14:00)
== END 2024-08-17 11:51 | disposition home or self-care (01) | DRG 871 ==
LOC: ER 03:01 → ERHOLD 04:56 → PCU 04:56
PROVIDERS: Emergency Medicine; Internal Medicine; ADMIT Student in an Organized Health Care Education/Training Program
PROC: 0T9B70Z Drainage of Bladder with Drainage Device, Via Natural or Artificial Opening (ICD-10-PCS; principal; 2024-08-15)
PROC: 3E03329 Introduction of Other Anti-infective into Peripheral Vein, Percutaneous Approach (ICD-10-PCS; 2024-08-15)
DX: A41.51 Sepsis due to Escherichia coli [E. coli] (principal); G92.8 Other toxic encephalopathy; N39.0 Urinary tract infection, site not specified; I13.0 Hypertensive heart and chronic kidney disease with heart failure and stage 1 through stage 4 chronic kidney disease, or unspecified chronic kidney disease; N17.9 Acute kidney failure, unspecified; N18.4 Chronic kidney disease, stage 4 (severe); I50.22 Chronic systolic (congestive) heart failure; F03.93 Unspecified dementia, unspecified severity, with mood disturbance; J96.11 Chronic respiratory failure with hypoxia; F17.210 Nicotine dependence, cigarettes, uncomplicated; Z66 Do not resuscitate; E11.22 Type 2 diabetes mellitus with diabetic chronic kidney disease; E03.9 Hypothyroidism, unspecified; E78.5 Hyperlipidemia, unspecified; J44.89 Other specified chronic obstructive pulmonary disease; G40.909 Epilepsy, unspecified, not intractable, without status epilepticus; G47.00 Insomnia, unspecified; D69.6 Thrombocytopenia, unspecified; D63.1 Anemia in chronic kidney disease; G47.33 Obstructive sleep apnea (adult) (pediatric); F43.10 Post-traumatic stress disorder, unspecified; D53.9 Nutritional anemia, unspecified; R65.20 Severe sepsis without septic shock; F31.9 Bipolar disorder, unspecified; Z99.89 Dependence on other enabling machines and devices; Z90.89 Acquired absence of other organs; Z95.5 Presence of coronary angioplasty implant and graft; Z98.890 Other specified postprocedural states; I25.2 Old myocardial infarction; Z88.1 Allergy status to other antibiotic agents; Z88.6 Allergy status to analgesic agent; Z88.8 Allergy status to other drugs, medicaments and biological substances; Z79.01 Long term (current) use of anticoagulants; Z79.890 Hormone replacement therapy; Z79.82 Long term (current) use of aspirin; Z79.4 Long term (current) use of insulin; Z79.899 Other long term (current) drug therapy
CPT/HCPCS: 0241U; 36415; 70450; 71045; 76770; 80048; 80053; 81001; 82550; 82607; 82728; 82746; 82947; 83540; 83550; 83605; 83735; 84100; 84145; 84439; 84443; 85025; 87040; 87077; 87086; 87186; 93005; 93010; 94640; 94660; 94664; 94762; 96365; 96375; 97110; 97161; 99285-25; A9270; J0696; J1644; J1815; J1885; J7030; J7042; J7120; P9612

== ENCOUNTER → 2024-09-02 | Outpatient (CLI) | payer MEDICARE, OTHER ==
[~2024-09-02] MED LIST changes: +ACET500 PO; +ALLO100 PO; +DIVALPROEX SOD500 M2 PO; +DOXY100 PO; +HALOPERIDOL2 MG/1 M1 PO; +NYSTOP15 GM TOP; +REFRESH TEARS P10 ML BOTHEYES; +SODBIC650 PO; +VISBIOME 112.51 EACH PO; +Vitamin B-12100 MCG SL; +Vitamin D1000 UNI1 PO
[2024-09-02 14:22] LABS: Creatinine, Urine Random 89.1 mg/dL (27.00-270.00); Protein/Creat Ratio, Ur Random 2.8
== END ==
LOC: LAB 11:29 → LAB SHORT 11:29
PROVIDERS: Hospitalist
DX: N18.4 Chronic kidney disease, stage 4 (severe) (principal)
CPT/HCPCS: 82570; 84156

== ENCOUNTER 2024-09-06 22:33 | Emergency (ER) | payer MEDICARE, OTHER ==
[~2024-09-06] VITALS: Ht 162.6 cm; Wt 127.0 kg
[~2024-09-06 22:33] MED LIST changes: -ACET500 PO
[2024-09-07] MEDS ORDERED: ACET500 PO (01:58)
[2024-09-07 02:48] VITALS: BP 136/84
== END 2024-09-07 02:58 | disposition home or self-care (01) ==
LOC: ER 22:33
DX: S00.83XA Contusion of other part of head, initial encounter (principal); E11.22 Type 2 diabetes mellitus with diabetic chronic kidney disease; N18.4 Chronic kidney disease, stage 4 (severe); I13.0 Hypertensive heart and chronic kidney disease with heart failure and stage 1 through stage 4 chronic kidney disease, or unspecified chronic kidney disease; I50.40 Unspecified combined systolic (congestive) and diastolic (congestive) heart failure; E78.5 Hyperlipidemia, unspecified; G47.00 Insomnia, unspecified; G47.33 Obstructive sleep apnea (adult) (pediatric); J45.909 Unspecified asthma, uncomplicated; K21.9 Gastro-esophageal reflux disease without esophagitis; I25.2 Old myocardial infarction; W19.XXXA Unspecified fall, initial encounter; F17.210 Nicotine dependence, cigarettes, uncomplicated; Z79.899 Other long term (current) drug therapy; Z79.52 Long term (current) use of systemic steroids; Z88.5 Allergy status to narcotic agent; Z88.8 Allergy status to other drugs, medicaments and biological substances
CPT/HCPCS: 70450; 70486; 72125; 82947; 99284-25

== ENCOUNTER → 2024-10-14 | Outpatient (CLI) | payer MEDICARE, OTHER ==
[~2024-10-14] MED LIST changes: +ACET500 PO
[2024-10-14 17:24] LABS: Source, Urine Clean Catch
[2024-10-14 19:01] LABS: Appearance, Urine Hazy (Clear); Bilirubin, Urine Neg (Neg); Blood, Urine 1+ (Neg); Color, Urine Yellow (P-Yellow); Glucose Qualitative, Urine Neg (Neg); Ketones, Urine Neg (Neg); Leukocyte Esterase, Urine 3+ (Neg); Nitrite, Urine Pos (Neg); Protein, Urine 4+ (Neg); Urobilinogen, Urine NORM (Normal)
[2024-10-14 19:10] LABS: White Blood Cells, Urine TNTC /hpf (0-5)
[2024-10-14 19:11] LABS: Bacteria Many /hpf; Red Blood Cells, Urine 0-2 /hpf (0-2); Squamous Epithelial Cells Few /hpf (Few)
== END | disposition home or self-care (01) ==
LOC: LAB SHORT 17:22 → LAB 17:22
PROVIDERS: Nurse Practitioner Family
DX: N39.0 Urinary tract infection, site not specified (principal)
CPT/HCPCS: 81001; 87077; 87086; 87186

== ENCOUNTER → 2025-01-14 | Outpatient (CLI) | payer MEDICARE, OTHER | END | disposition home or self-care (01) | LOC: LAB SHORT 10:54 → LAB 10:54 | DX: E11.22 Type 2 diabetes mellitus with diabetic chronic kidney disease (principal); N18.30 Chronic kidney disease, stage 3 unspecified; R80.9 Proteinuria, unspecified | CPT/HCPCS: 82043 ==

== ENCOUNTER 2025-03-07 16:28 | Emergency (ER) | payer MEDICARE, OTHER ==
[~2025-03-07] VITALS: Ht 162.6 cm; Wt 108.9 kg
[2025-03-07] MEDS ORDERED: Ondansetron HCl 2 MG / ML 2ML Vial IV ONE (17:05)
[2025-03-07] MEDS ORDERED: Morphine Sulfate 4 MG/1 ML Injection IV ONE ×2 (17:05→22:00)
[2025-03-07] MEDS ORDERED: Diphth,Pertuss(Acell),Tet Vac 0.5 ML VIAL IM ONE (17:20)
[2025-03-07] MEDS ORDERED: HYDR1TAB94 PO (18:30)
[2025-03-07] MEDS ORDERED: DOXY100 PO (18:30)
[2025-03-07] MEDS ORDERED: Ketorolac Tromethamine 15mg Vial IV ONE (19:35)
[2025-03-07 23:00] VITALS: BP 154/87
== END 2025-03-07 23:45 | disposition home or self-care (01) ==
LOC: ER 16:28
DX: S01.511A Laceration without foreign body of lip, initial encounter (principal); S03.2XXA Dislocation of tooth, initial encounter; S80.211A Abrasion, right knee, initial encounter; M25.562 Pain in left knee; W05.0XXA Fall from non-moving wheelchair, initial encounter; I13.0 Hypertensive heart and chronic kidney disease with heart failure and stage 1 through stage 4 chronic kidney disease, or unspecified chronic kidney disease; E11.22 Type 2 diabetes mellitus with diabetic chronic kidney disease; N18.4 Chronic kidney disease, stage 4 (severe); I50.20 Unspecified systolic (congestive) heart failure; F03.90 Unspecified dementia, unspecified severity, without behavioral disturbance, psychotic disturbance, mood disturbance, and anxiety; I25.2 Old myocardial infarction; J44.89 Other specified chronic obstructive pulmonary disease; E03.9 Hypothyroidism, unspecified; E78.5 Hyperlipidemia, unspecified; G40.909 Epilepsy, unspecified, not intractable, without status epilepticus; G47.33 Obstructive sleep apnea (adult) (pediatric); F17.210 Nicotine dependence, cigarettes, uncomplicated; Z88.5 Allergy status to narcotic agent; Z88.8 Allergy status to other drugs, medicaments and biological substances; Z91.048 Other nonmedicinal substance allergy status; Z79.890 Hormone replacement therapy; Z79.899 Other long term (current) drug therapy
CPT/HCPCS: 12011; 70450; 70486; 72125; 73562-LT; 73562-RT; 90471; 90715; 96374; 96375; 96376; 99284-25; J1885; J2270; J2405